=== PATIENT | female | born 1970 | race Hispanic/Latino ===

== ENCOUNTER 2017-10-07 04:34 | Inpatient (IN) | payer SELFPAY ==
[2017-10-07 05:11] LABS: #Eosinphils 0.1 thou/uL (0.0-0.7); #Lymphocytes 1.3 thou/uL (1.20-3.40); #Monocytes 0.5 thou/uL (0.11-0.59); #Neutrophils 7.7 thou/uL (1.40-6.50); %Basophils 0.3 % (0.0-1.0); %Eosinophils 0.9 % (0.0-10.0); %Lymphocytes 13.4 % (21.0-51.0); %Monocytes 5.5 % (0.0-10.0); %Neutrophils 79.9 % (42.0-75.0); Hemoglobin 13.5 g/dL (12.0-16.0); Mean Corpuscular HGB CONC 34.4 g/dL (32.0-36.0); Mean Corpuscular Hemoglobin 32.6 pg (27.0-31.0); Mean Corpuscular Volume 94.7 fL (78.0-98.0); Mean Platelet Volume 9.3 fL (7.4-10.4); Platelet Count 188 thou/uL (130-400); RBC Distribution Width 11.5 % (11.5-14.5); Red Blood Cell (RBC) Count 4.15 mill/uL (4.20-5.40); White Blood Cell (WBC) Count 9.7 thou/uL (4.8-10.8)
[2017-10-07 05:31] LABS: ALT (SGPT) 41 U/L (8-55); AST (SGOT) 20 U/L (5-34); Albumin 3.6 g/dL (3.5-5.0); Alkaline Phosphatase 145 U/L (40-150); Anion Gap 12 mmol/L (10-20); BUN (Urea Nitrogen) 10 mg/dL (7.0-18.7); Bilirubin, Total 0.4 mg/dL (0.2-1.2); Calc. Creatinine Clearance 0 mL/min (70-130); Calcium 7.9 mg/dL (7.8-10.44); Carbon Dioxide 21 mmol/L (22-29); Chloride 107 mmol/L (98-107); Estimated GFR-MDRD 73; Globulin 2.8 g/dL (2.4-3.5); Glucose 310 mg/dL (70-105); Lipase 14 U/L (8-78); Potassium 3.3 mmol/L (3.5-5.1); Protein, Total 6.4 g/dL (6.0-8.3); Sodium 137 mmol/L (136-145)
[2017-10-07] MEDS ORDERED: Acetaminophen 325 MG TAB PO PRN ×2 (09:11→09:19)
[2017-10-07] MEDS ORDERED: Bisacodyl 5 MG TAB PO PRN (09:11)
[2017-10-07] MEDS ORDERED: HYDROcodone/Acetaminophen 5/325 mg Tablet PO PRN ×2 (09:19)
[2017-10-07] MEDS ORDERED: Ondansetron HCl/PF 4 MG/2 ML Vial IVP PRN (09:19)
[2017-10-07] MEDS ORDERED: Ondansetron ODT 4 MG TAB SL PRN (09:19)
[2017-10-07] MEDS ORDERED: Piperacillin/Tazobactam 3.375 GM in Sodium Chloride 0.9% 100 ML IVPB SCH (09:30)
[2017-10-07] MEDS ORDERED: Sodium Chloride 0.45% 1,000 ML IV SCH (09:30)
[2017-10-07 10:03] LABS: #Eosinphils 0.1 thou/uL (0.0-0.7); #Lymphocytes 1.4 thou/uL (1.20-3.40); #Monocytes 0.5 thou/uL (0.11-0.59); #Neutrophils 7.6 thou/uL (1.40-6.50); %Basophils 0.2 % (0.0-1.0); %Eosinophils 0.6 % (0.0-10.0); %Lymphocytes 14.2 % (21.0-51.0); %Monocytes 5.2 % (0.0-10.0); %Neutrophils 79.8 % (42.0-75.0); Hemoglobin 13.2 g/dL (12.0-16.0); Mean Corpuscular HGB CONC 33.8 g/dL (32.0-36.0); Mean Corpuscular Hemoglobin 32.4 pg (27.0-31.0); Mean Corpuscular Volume 95.7 fL (78.0-98.0); Mean Platelet Volume 9.4 fL (7.4-10.4); Platelet Count 186 thou/uL (130-400); RBC Distribution Width 11.5 % (11.5-14.5); Red Blood Cell (RBC) Count 4.08 mill/uL (4.20-5.40); White Blood Cell (WBC) Count 9.5 thou/uL (4.8-10.8)
[2017-10-07 10:18] LABS: ALT (SGPT) 40 U/L (8-55); AST (SGOT) 20 U/L (5-34); Albumin 3.6 g/dL (3.5-5.0); Alkaline Phosphatase 127 U/L (40-150); Anion Gap 12 mmol/L (10-20); BUN (Urea Nitrogen) 9 mg/dL (7.0-18.7); Bilirubin, Total 0.5 mg/dL (0.2-1.2); Calc. Creatinine Clearance 105 mL/min (70-130); Calcium 7.8 mg/dL (7.8-10.44); Carbon Dioxide 22 mmol/L (22-29); Chloride 111 mmol/L (98-107); Estimated GFR-MDRD 80; Globulin 2.8 g/dL (2.4-3.5); Glucose 273 mg/dL (70-105); Potassium 3.5 mmol/L (3.5-5.1); Protein, Total 6.4 g/dL (6.0-8.3); Sodium 141 mmol/L (136-145)
[2017-10-07] MEDS: metroNIDAZOLE 500 MG in Premix Bag 1 BAG IVPB SCH ×2 (13:02→20:40)
[2017-10-07] MEDS ORDERED: Dextrose 5% in Water 1,000 ML IV PRN (15:37)
[2017-10-07] MEDS ORDERED: Dextrose 50% Abboject 50 ML SYRINGE SLOW IVP PRN (15:37)
[2017-10-07] MEDS: Dextrose 5 % And 0.9 % NaCl 1,000 ML IV SCH (16:23)
[2017-10-07] MEDS ORDERED: Naloxone HCl 0.4 mg/ml Vial IV PRN (17:22)
[2017-10-07] MEDS ORDERED: diphenhydrAMINE 50 MG/ML VIAL IM PRN (17:22)
[2017-10-07] MEDS ORDERED: Promethazine HCl 25 MG/ML VIAL IM PRN (17:22)
[2017-10-07] MEDS ORDERED: diphenhydrAMINE 50 MG/ML VIAL IVP PRN (17:22)
[2017-10-07] MEDS ORDERED: diphenhydrAMINE 25 MG CAP PO PRN (17:22)
[2017-10-07] MEDS ORDERED: Communication Order-Pharmacy FS SCH (17:30)
--- NOTE | 2017-10-07 18:06 | HP ---
CHIEF COMPLAINT: Abdominal pain. HISTORY OF PRESENT ILLNESS: The patient is a very pleasant 47-year-old female with history of hypertension and diabetes who is currently not on any blood pressure or diabetes medication, who p resented to the hospital with complaints of diffuse pressure-like pain to her lower abdomen. Patient stated that this pain started on Friday. She has been taking snfo-dnt-hqihdyy Tylenol that had some relief. Patient denies any radiation. She stated that her pain was exacerbated by movement. Patie nt states that her pain has been around 8-10. She also complains of early satiety, nausea, and some chills since yesterday, but denies any weight loss, vomiting or diarrhea or hematochezia. Patient st ates that she at times gets constipated, but her last bowel movement was this morning. She denies an y history of smoking or any chest pain or shortness of breath. Patient states that this has never [place] ppened to her before. PAST MEDICAL HISTORY: Hypertension, type 2 diabetes; however, she is currently not on any medication s due to financial issues. PAST SURGICAL HISTORY: Hysterectomy, appendectomy and removal of kidney stones. MEDICATIONS: She is on no medications. ALLERGIES: No known drug allergies. SOCIAL HISTORY: She occasionally drinks alcohol; however, denies any drug use or smoking history. REVIEW OF SYSTEMS: All negative except for the ones mentioned above in the HPI. LABORATORY DATA: As following: WBC of 9.5, hemoglobin of 13.2, hematocrit of 39.1, platelets of 186 . Chemistry: Sodium 141, potassium of 3.5, BUN of 9, creatinine of 0.77, calcium of 7.8, AST 20, AL T is 40. Lipase is 14. PHYSICAL EXAMINATION: VITAL SIGNS: Temperature 98.9, pulse 77, respirations 18, oxygen saturation 95, blood pressure 144/8 7. GENERAL: She is awake, alert, oriented x3, does not appear in any distress. CARDIOVASCULAR: S1, S2 present. No murmurs, rubs or gallops. LUNGS: Clear to auscultation. No rhonchi or wheezes noted. ABDOMEN: Obese. Bowel sounds are present. Significant tenderness upon light palpation all over abd omen. EXTREMITIES: No edema. SKIN: No lesions noted or rashes noted. NEUROLOGIC: There are no focal neurological deficits noted. ASSESSMENT AND PLAN: The patient is a very pleasant 47-year-old female who presents to the hospital with complaints of abdominal pain. 1. Diverticulitis with microperforation. Patient came in to the outside hospital, had a CT abdomen and pelvis, which indicated diverticulitis with microperforation. Patient currently has significant generalized tenderness in her abdomen concerning for peritonitis. We will start the patient on Cipro and Flagyl. Also, consult surgical services. Keep patient n.p.o. for now and also pain medication as needed. 2. Her sugars have been very high in the 310s and 273. We will check a hemoglobin A1c, also started on sliding scale insulin. 3. High blood pressure. The patient's blood pressure again was significantly elevated. This could be secondary to pain and also given her underlying high blood pressure diagnosis. 4. Deep venous thrombosis prophylaxis. We will put patient on subQ heparin.
[2017-10-07] MEDS: HYDROmorphone 10 mg/100 ml CADD IVPB PRN (18:10)
[2017-10-07] MEDS: Ketorolac Tromethamine 30 MG/ML VIAL IVP SCH ×2 (18:25→23:11)
[2017-10-07] MEDS: Famotidine/PF 20 mg/2ml Vial SLOW IVP SCH (20:41)
[2017-10-08] MEDS: Dextrose 5 % And 0.9 % NaCl 1,000 ML IV SCH ×3 (00:46→23:06)
--- NOTE | 2017-10-08 02:08 | CON ---
DATE OF CONSULTATION: 10/07/2017 REQUESTING PHYSICIAN: Alejandra Perez M.D. HISTORY OF PRESENT ILLNESS: This is a 47-year-old woman who was seen in an outside hospital with 2-day history of what started as a left lower quadrant abdominal pain and progressive generalized pain. Pain was initially rated at 10/10 and now rated at 9/10 without radiation. The patient denies any nausea or vomiting. She denies any fevers or chills. Her last bowel movement and flatus was yesterday. She denies any hematochezia or melena. She admits to approximately 10-pound weight loss over the last 2 weeks. PAST MEDICAL HISTORY: Pertinent for type 2 diabetes mellitus and essential hypertension for which patient has not been taking her medication over the last 1 year due to an affordability of her medications. PAST SURGICAL HISTORY: Abdominal hysterectomy, Appendectomy and kidney stone extractions. 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 She admits to drinking about 7 beers every weekend. She denies any cigarette smoking or illicit drug abuse. PREHOSPITALIZATION MEDICATIONS: None at the time of this admission. ALLERGIES: The patient denies any known drug allergies. FAMILY HISTORY: Notable for both parents with diabetes mellitus and father with essential hypertension and heart disease. She denies any family history of cancer. REVIEW OF SYSTEMS: A 10-point review of system is essentially unremarkable except for as stated in past medical history and chief complaint. PHYSICAL EXAMINATION: GENERAL: This reveals a 47-year-old, 4 feet 11-inch, 163-pound woman with a BMI of 32.9 kilograms per meter squared. The patient appears stated age and is in no acute distress at the time of my evaluation. VITAL SIGNS: Currently includes blood pressure 144/87, pulse 77, respiratory rate is 18, temperature is 98.9 degrees Fahrenheit, oxygen saturation is 95% on room air. Her maximum temperature since this admission is 99.0 degrees Fahrenheit. HEENT: Reveals normocephalic and atraumatic. Pupils are equal, round, and reactive to light and accommodation. Extraocular muscles are intact bilaterally. She has no sclerae icterus present. Oral mucosa is pink and moist. No lesions are noted. HEART: Reveals regular rate and rhythm, no murmurs or gallops auscultated. LUNGS: Clear to auscultation bilaterally. Breathing regular and unlabored. ABDOMEN: Soft and obese. She has generalized tenderness to palpation with mild rebound tenderness present. Liver and spleen nonpalpable below costal margin. EXTREMITIES: Reveals 2+ radial and pedal pulses bilaterally. No ankle edema is present. NEUROLOGIC: Reveals no focal deficits present. PERTINENT LABORATORY FINDINGS: Today includes a CBC with 9500 white blood cells , hemoglobin and hematocrit stable at 13.2 and 39.1 respectively. Platelet count is also stable at 186,000. Metabolic profile: Sodium 141, potassium is 3.5, chloride is 111, bicarbonate is 22, BUN is 9, creatinine is 0.77, and glucose is 273. AST and ALT 20 and 40 respectively. Total bilirubin is 0.5. I have personally reviewed the CT scan of the abdomen and pelvis which was obtained in [facility] this admission. This indeed shows thickened sigmoid colonic wall with pericolonic fat stranding and tiny that of extraluminal gas. There is no pneumatosis intestinalis. I did not see any significant free fluid present. IMPRESSION: 1. Acute sigmoid colonic diverticulitis with microperforation. 2. Type 2 diabetes mellitus, poorly controlled. 3. History of essential hypertension, poorly controlled. PLAN: 1. We will maintain bowel rest and IV hydration. I agree with choice of broad spectrum antibiotic therapy. 2. We will recommend tighter glucose control. There is no acute surgical indication for this patient at this time; however, should conservative management fail, we will give consideration to surgical intervention at the time which may warrant sigmoidectomy with end colostomy. If the patient remains hemodynamically stable but with significant persistent abdominal pain, we will consider diagnostic laparoscopy with laparoscopic abdominal washout. Above findings and plan has been discussed with the patient in the presence of nurse. The patient indicates understanding of information given. I have answered her questions. Thank you again, Dr. Perez for allowing me the opportunity to participate in the care of this patient. KASHIF
[2017-10-08] MEDS: Ketorolac Tromethamine 30 MG/ML VIAL IVP SCH ×3 (05:35→20:11)
[2017-10-08] MEDS: metroNIDAZOLE 500 MG in Premix Bag 1 BAG IVPB SCH ×2 (05:35→15:34)
[2017-10-08 05:38] LABS: Hemoglobin A1c 13.4 % (4.0-6.0)
[2017-10-08 05:39] LABS: #Eosinphils 0.1 thou/uL (0.0-0.7); #Lymphocytes 1.2 thou/uL (1.20-3.40); #Monocytes 0.6 thou/uL (0.11-0.59); #Neutrophils 6.3 thou/uL (1.40-6.50); %Basophils 0.1 % (0.0-1.0); %Eosinophils 1.1 % (0.0-10.0); %Lymphocytes 14.2 % (21.0-51.0); %Neutrophils 77.7 % (42.0-75.0); Mean Corpuscular HGB CONC 32.8 g/dL (32.0-36.0); Mean Corpuscular Hemoglobin 32.4 pg (27.0-31.0); Mean Corpuscular Volume 98.9 fL (78.0-98.0); Mean Platelet Volume 9.6 fL (7.4-10.4); Platelet Count 183 thou/uL (130-400); RBC Distribution Width 11.5 % (11.5-14.5); Red Blood Cell (RBC) Count 4.02 mill/uL (4.20-5.40); White Blood Cell (WBC) Count 8.2 thou/uL (4.8-10.8)
[2017-10-08 05:56] LABS: ALT (SGPT) 54 U/L (8-55); AST (SGOT) 45 U/L (5-34); Albumin 3.4 g/dL (3.5-5.0); Alkaline Phosphatase 108 U/L (40-150); Anion Gap 11 mmol/L (10-20); BUN (Urea Nitrogen) 9 mg/dL (7.0-18.7); Bilirubin, Total 0.5 mg/dL (0.2-1.2); Calc. Creatinine Clearance 96 mL/min (70-130); Calcium 7.9 mg/dL (7.8-10.44); Carbon Dioxide 22 mmol/L (22-29); Chloride 110 mmol/L (98-107); Estimated GFR-MDRD 72; Globulin 2.9 g/dL (2.4-3.5); Glucose 317 mg/dL (70-105); Potassium 4.7 mmol/L (3.5-5.1); Protein, Total 6.3 g/dL (6.0-8.3); Sodium 138 mmol/L (136-145)
[2017-10-08] MEDS: HumaLOG 300 UNITS/3 ML VIAL SC PRN ×2 (08:22→23:20)
[2017-10-08] MEDS: Enoxaparin Sodium 40 MG/0.4 ML SYRINGE SC SCH (08:22)
[2017-10-08] MEDS: Insulin Glargine 10 UNITS in Pre-Filled Syringe 1 EACH SC SCH (10:22)
[2017-10-08] MEDS: Famotidine/PF 20 mg/2ml Vial SLOW IVP SCH ×2 (10:23→23:06)
--- NOTE | 2017-10-08 11:44 | PRG ---
DATE OF SERVICE: 10/08/2017 SUBJECTIVE: This is a 47-year-old female that our team has seen in consultation for diverticulitis for evidence of microperforation. Patient has been on IV antibiotics since admission. There were no acute overnight events. The patient reports that her pain was an 8/10 yesterday and remains a 7/10 despite [employer] and IV antibiotics. Assistance of a spring bender was used for communication with the patient. OBJECTIVE: VITAL SIGNS: Temperature 99.6, pulse 81, respirations 20, O2 saturation 97% on room air, blood pressure 156/76. GENERAL: Well-developed female in no acute distress, resting in bed. PULMONARY: Normal work of breathing. Symmetric rise. CARDIOVASCULAR: Regular rate and rhythm. GASTROINTESTINAL: The abdomen is soft with generalized abdominal tenderness. There is no rigidity or guarding. MUSCULOSKELETAL: Moves all extremities x4. NEUROLOGIC: No focal deficit noted. LABORATORY DATA: WBC 8.2, hemoglobin 13.0, hematocrit 39.7, platelet count 183. Sodium 138, potassium 4.7, chloride 110, carbon dioxide 22, BUN 9, creatinine 0.85, glucose 317, hemoglobin A1c 13.4. ASSESSMENT: 1. Diverticulitis with evidence of microperforation. 2. Acute abdominal pain secondary to #1. PLAN: Despite conservative management with IV hydration, IV antibiotics and pain management, the patient continues to have persistent abdominal pain. We will take her for a laparoscopic washout. Add lantus 10U sc daily for uncontrolled hyperglycemia Plan of care was discussed with the patient and family at bedside. All questions were answered at the time of this dictation. The patient was seen and evaluated with Dr. Newton. KASHIF
[2017-10-08] MEDS ORDERED: Lidocaine 1% PF 5 ML VIAL ONE (11:53)
[2017-10-08] MEDS ORDERED: Succinylcholine Chloride 20 MG/ML 10 ml SYRINGE FS ONE (11:53)
[2017-10-08] MEDS ORDERED: Glycopyrrolate 0.2 MG/ML 5 ML SYRINGE ONE (11:53)
[2017-10-08] MEDS ORDERED: Ondansetron HCl/PF 4 MG/2 ML Vial ONE (11:53)
[2017-10-08] MEDS ORDERED: PROPOFOL 200 MG/20 ML VIAL ONE (11:53)
[2017-10-08] MEDS ORDERED: Bupivacaine/Epinephrine 0.25% 30 ML VIAL ONE (12:39)
[2017-10-08] MEDS ORDERED: Midazolam HCl 2 mg/2 ml Vial ONE (12:50)
[2017-10-08] MEDS ORDERED: Fentanyl 100 MCG/2 ML VIAL ONE ×4 (12:50→17:58)
[2017-10-08] MEDS ORDERED: Ondansetron HCl/PF 4 MG/2 ML Vial IVP PRN (13:34)
[2017-10-08] MEDS ORDERED: Promethazine HCl 25 MG/ML VIAL SLOW IVP PRN (13:34)
[2017-10-08] MEDS ORDERED: Promethazine HCl 25 MG/ML VIAL IM PRN (13:34)
--- NOTE | 2017-10-08 16:48 | PDOC.PN ---
- Subjective Encounter Start Date: 10/08/17 Encounter Start Time: 17:24 Subjective: pt post op, appears drowsy - Objective Resuscitation Status: Resuscitation Status FULL:Full Resuscitation Vital Signs & Weight: Vital Signs (12 hours) Temp Pulse Resp BP Pulse Ox 10/08/17 08:00 99.6 F 81 20 156/76 H 97 10/08/17 05:09 99.1 F 80 18 143/88 H 96 Weight Weight 163 lb I&O: 10/07/17 10/08/17 10/09/17 06:59 06:59 06:59 Intake Total 1200 Balance 1200 Result Diagrams: 10/08/17 04:24 10/08/17 04:24 Additional Labs: Accuchecks 10/08/17 10/08/17 10/08/17 12:16 11:34 08:06 POC Glucose 210 H 224 H 231 H 10/08/17 10/07/17 10/07/17 05:13 19:46 16:40 POC Glucose 275 H 182 H 200 H 10/07/17 11:18 POC Glucose 232 H Phys Exam - Physical Examination HEENT: PERRLA, moist MMs, sclera anicteric, TM's clear, oral pharynx no lesions , 2+ tonsils Neck: no nodes, no JVD, supple, full ROM Respiratory: no wheezing, no rales, no rhonchi, wheezing present, clear to auscultation bilateral Cardiovascular: RRR, no significant murmur, no rub, gallop, irregular Gastrointestinal: soft colostomy and dressing intact Musculoskeletal: no edema, pulses present, edema present Dx/Plan (1) Diverticulitis Code(s): K57.92 - DVTRCLI OF INTEST, PART UNSP, W/O PERF OR ABSCESS W/O BLEED Status: Acute (2) Diabetes Code(s): E11.9 - TYPE 2 DIABETES MELLITUS WITHOUT COMPLICATIONS Status: Acute Qualifiers: Diabetes mellitus type: type 2 (3) HTN (hypertension) Code(s): I10 - ESSENTIAL (PRIMARY) HYPERTENSION Status: Acute - Plan pt was taken to surgery since her pain did not improve with conservative tx -: will add lantus tonight and give one dose of short acting insulin now -: continue iv abx. -: will continue iv fluids * . Review of Systems - Review of Systems Other: unable to obtain - Medications/Allergies Allergies/Adverse Reactions: Allergies Allergy/AdvReac Type Severity Reaction Status Date / Time No Known Allergies Allergy Unverified 10/07/17 07:24 Medications: Current Medications Acetaminophen (Tylenol) 650 mg PO Q4H PRN PRN Reason: Headache/Fever or Pain Bisacodyl (Dulcolax) 10 mg PO DAILYPRN PRN PRN Reason: Constipation Dextrose/Water (Dextrose 50%) 25 gm SLOW IVP PRN PRN PRN Reason: Hypoglycemia Diphenhydramine HCl (Benadryl) 25 mg IVP Q3H PRN PRN Reason: Itching Diphenhydramine HCl (Benadryl) 25 mg PO Q3H PRN PRN Reason: Itching Diphenhydramine HCl (Benadryl) 25 mg IM Q3H PRN PRN Reason: Itching Enoxaparin Sodium (Lovenox) 40 mg SC 0900 [facility] Last Admin: 10/08/17 08:22 Dose: Not Given Famotidine (Pepcid) 20 mg SLOW IVP Q12HR [facility] Last Admin: 10/08/17 10:23 Dose: 20 mg Glucagon (Glucagon) 1 mg IM PRN PRN PRN Reason: Hypoglycemia Hydromorphone HCl (Dilaudid Cadd) 0 mg IVPB INF PRN PRN Reason: Pain Last Admin: 10/07/17 18:10 Dose: 10 mg Dextrose/Sodium Chloride (D5 0.9% Ns) 1,000 mls @ 100 mls/hr IV .Q10H [facility] Last Admin: 10/08/17 08:21 Dose: 1,000 mls Dextrose/Water (D5w) 1,000 mls @ 0 mls/hr IV .Q0M PRN; As Directed PRN Reason: Hypoglycemia Insulin Glargine 10 units/ (Miscellaneous Medication) 0.1 mls @ 0 mls/hr SC QAM [facility] Last Admin: 10/08/17 10:22 Dose: 0.1 mls Piperacillin Sod/Tazobactam (Sod 3.375 gm/ Sodium Chloride) 100 mls @ 200 mls/ hr IVPB Q6HR [facility] Insulin Glargine 5 units/ (Miscellaneous Medication) 0.05 mls @ 0 mls/hr SC HS [facility] Insulin Human Lispro (Humalog) 0 units SC .MODERATE SLIDING SC PRN PRN Reason: Moderate Correctional Scale Last Admin: 10/08/17 08:22 Dose: 4 unit Insulin Human Lispro (Humalog) 6 units SC NOW [facility] Stop: 10/08/17 19:30 Ketorolac Tromethamine (Toradol) 30 mg IVP Q6HR [facility] Stop: 10/09/17 18:01 Last Admin: 10/08/17 15:34 Dose: Not Given Labetalol HCl (Normodyne) 5 mg SLOW IVP Q4H PRN PRN Reason: SBP Greater Than 180 Naloxone HCl (Narcan) 0.2 mg IV Q5MIN PRN PRN Reason: Opiate Reversal Promethazine HCl (Phenergan) 12.5 mg IM Q4H PRN PRN Reason: Nausea/Vomiting Last Admin: 10/07/17 23:11 Dose: 12.5 mg Sodium Chloride (Flush - Normal Saline) 10 ml IVF Q12HR [facility] Sodium Chloride (Flush - Normal Saline) 10 ml IVF PRN PRN PRN Reason: Saline Flush
[2017-10-08] MEDS ORDERED: HumaLOG 300 UNITS/3 ML VIAL ONE (17:22)
[2017-10-08] MEDS ORDERED: Labetalol HCl 100 MG/20 ML VIAL SLOW IVP PRN (17:22)
[2017-10-08] MEDS ORDERED: HumaLOG 300 UNITS/3 ML VIAL SC SCH (17:30)
[2017-10-08] MEDS ORDERED: Labetalol HCl 100 MG/20 ML VIAL ONE (18:07)
--- NOTE | 2017-10-08 19:24 | OP ---
DATE OF OPERATION: 10/08/2017 PREOPERATIVE DIAGNOSES: 1. Acute sigmoid diverticulitis with microperforation. 2. Acute peritonitis secondary to #1. POSTOPERATIVE DIAGNOSES: 1. Acute sigmoid colon diverticulitis with blowout. 2. Acute peritonitis secondary to #1. 3. Extensive intraabdominal adhesions. OPERATIONS PERFORMED: 1. Diagnostic laparoscopy. 2. Laparoscopic extensive adhesiolysis. 3. Exploratory laparotomy. 4. Sigmoidectomy with end colostomy. SURGEON: Jorge Newton D.O. ANESTHESIA: General endotracheal. ESTIMATED BLOOD LOSS: 200 mL. FLUIDS GIVEN: 3000 mL crystalloids. SPONGE AND INSTRUMENT COUNT: Certified as correct x2. COMPLICATIONS: None apparent at time of operation. INDICATIONS FOR PROCEDURE: A 47-year-old woman with history of type 2 diabetes mellitus who presente d with worsening abdominal pain of 2-3 day duration. Clinical and radiographic examination was consi stent with acute sigmoid colon diverticulitis with microperforation. The patient was placed on broad spectrum IV antibiotic therapy for 3 days now yet with persistent severe generalized abdominal pain. Despite being on broad spectrum antibiotic therapy in addition to the persistent severe abdominal p ain, patient is now having new onset fever. Clinical examination today reveals significant peritonea l signs on examination suggesting worsening peritonitis. Decision was made to bring the patient to the operating room for diagnostic laparoscopy and laparosco pic abdominal washout. Findings are consistent with extensive intraabdominal adhesions involving the previous infraumbilical midline incision from the hysterectomy. There was also extensive amount of inflammation involving the mid sigmoid colon which was completely adherent to the abdominal wall. DESCRIPTION OF PROCEDURE: Informed consent obtained from the patient who was brought to the operatin g room and placed in supine position. Following general anesthesia, abdomen is sterilely prepped and draped in usual fashion after Lion catheter was inserted and placed to wall suction. The skin belo w the umbilicus was infiltrated with 0.25% Marcaine with epinephrine. A small curvilinear infraumbil ical incision is made using an 11 scalpel. Umbilical stalk was grasped with Gayle's and elevated. Veress needle was inserted through the incision through which the abdomen was insufflated with 3 lite rs of CO2 gas. Intraabdominal pressure was noted at 2 mmHg. Following abdominal insufflation, Veres s needle was removed and a 5 mm trocar was then introduced into the peritoneal cavity using the Visip ort under laparoscopy. Laparoscopy confirmed proper placement of the port. No injuries to underlyin g structures. On direct laparoscopy, I placed right upper quadrant port after the overlying skin was infiltrated with 0.25% Marcaine with epinephrine and appropriate incisions made. The pelvis was the n viewed from this area noting extensive amount of intraabdominal adhesions involving omentum, small bowel and the anterior abdominal wall. Meticulous adhesiolysis ensued which warranted placement of a second left upper quadrant 5 mm port. Once adhesiolysis was completed, the sigmoid colon revealed i n this area which was markedly thick walled and hard to grasp. This was densely adhered to the anter ior abdominal wall. Decision was made at this juncture to convert this to open to have a better asse ssment of the sigmoid colon. A midline incision was then made using #10 scalpel and carried the inci roly through subcutaneous tissues maintaining hemostasis using cautery. Fascia was incised in midlin e. The peritoneal cavity was then entered using Metzenbaum scissors. Incision was then extended sup eriorly and inferiorly. Bookwalter retractor was put in place to gain exposure. I was able to run t he small bowel from the ligament of Treitz down to terminal ileum, finding no pathology. The large i ntestine was then palpated from the cecum through the ascending, transverse and descending colon down to the level of the sigmoid colon. In the mid sigmoid colon, there was a hard mass which was marked ly adherent to the intraabdominal wall. Once the left colon was mobilized along the white line of To ldt, a posterior blowout of the sigmoid colon was readily evident. Photography was taken up document ation. Decision was made at this juncture therefore to proceed with sigmoidectomy. As there was significant amount of inflammation which we will prohibit primary anastomosis, colostomy will be warranted at th is time. I made a rent through the sigmoid mesocolon using a hemostat. This was achieved approximat olena 4 cm from the involved sigmoid colon. ABDI stapler was introduced here and the bowel was divided. I then made another rent for approximately 4 cm proximal to the involved segment. Again, ABDI stapl er was introduced through this defect in the mesentery and the bowel was divided. Mesentery of the s igmoid colonic specimen was sterilely divided using LigaSure device with good hemostasis. The specim en was passed off the operative field for more transmission to pathology. The abdominal cavity was t hen copiously irrigated clear with saline. Good hemostasis is noted in place. All sponges and instr uments were removed at this juncture and accounted for x2. A core incision was made in the left lowe r quadrant. The site chosen for the colostomy. This was achieved using #10 scalpel. Incision was c arried through subcutaneous tissues maintaining hemostasis using cautery. This was dissected down to the level of the fascia. A crucifix incision was made on the anterior fascia. Through this, I intr oduced a tonsil clamp into the peritoneal cavity dissecting this core defect to 3 fingerbreadths. Ba nikock forceps was introduced then through this grasping the staple end of the descending colon which was pulled through and secured within the peritoneal cavity using a 3-0 silk suture at 3 points. Aga in, once all sponges and instruments have been accounted for, small bowel was returned to normal norm omic location. Omentum was drawn over the remainder of the viscera. Fascia was approximated in midl ine using a running stitch of #1 single stranded PDS. Subcutaneous tissues irrigated clear with sali ne solution perfecting hemostasis using thermocautery. Subcutaneous tissues were approximated using interrupted sutures of 3-0 Vicryl. Skin was closed using porfirio. Sterile dressings were applied. Attention was then directed to the staple line of the descending colon. The staple line was excised using Sullivan scissors. A functional Breanna colostomy was then achieved using interrupted sutures of 3- 0 Vicryl. Ostomy appliance was then put in place. The patient tolerated this operation without any apparent complication and was returned to recovery room in satisfactory condition.
[2017-10-08] MEDS: Piperacillin/Tazobactam 3.375 GM in Sodium Chloride 0.9% 100 ML IVPB SCH (20:12)
--- NOTE | 2017-10-08 20:18 | RAD ---
SUPINE ABDOMEN: 10/08/17 HISTORY: Assess NG tube placement. FINDINGS/IMPRESSION: NG tube is looped and overlies the left upper quadrant. Findings would indicate coiling of NG tube in the upper gastric fundus. Skin porfirio overlie the mid lower abdomen indicating recent surgery. There is streaky gas density se en in soft tissues of the left abdomen laterally. This presumably represents postoperative change; ho wever, subcutaneous cellulitis should be excluded. The findings were relayed to Tiffany, the patient's nurse in surgery B floor. The ordering physician will be notified. POS: MARIZA
[2017-10-08] MEDS: Insulin Glargine 5 UNITS in Pre-Filled Syringe 1 EACH SC SCH (23:21)
[2017-10-09] MEDS: Piperacillin/Tazobactam 3.375 GM in Sodium Chloride 0.9% 100 ML IVPB SCH ×4 (00:59→18:23)
[2017-10-09] MEDS: Ketorolac Tromethamine 30 MG/ML VIAL IVP SCH ×4 (01:00→18:24)
[2017-10-09] MEDS: Dextrose 5 % And 0.9 % NaCl 1,000 ML IV SCH (04:40)
[2017-10-09 05:53] LABS: #Monocytes 0.5 thou/uL (0.11-0.59); #Neutrophils 5.6 thou/uL (1.40-6.50); %Basophils 0.2 % (0.0-1.0); %Eosinophils 0.4 % (0.0-10.0); %Lymphocytes 14.6 % (21.0-51.0); %Monocytes 6.5 % (0.0-10.0); %Neutrophils 78.3 % (42.0-75.0); Hemoglobin 12.9 g/dL (12.0-16.0); Mean Corpuscular HGB CONC 33.3 g/dL (32.0-36.0); Mean Corpuscular Hemoglobin 33.2 pg (27.0-31.0); Mean Corpuscular Volume 99.5 fL (78.0-98.0); Platelet Count 192 thou/uL (130-400); RBC Distribution Width 11.8 % (11.5-14.5); White Blood Cell (WBC) Count 7.1 thou/uL (4.8-10.8)
[2017-10-09] MEDS: HumaLOG 300 UNITS/3 ML VIAL SC PRN ×2 (06:14→11:53)
[2017-10-09 06:15] LABS: Anion Gap 10 mmol/L (10-20); BUN (Urea Nitrogen) 11 mg/dL (7.0-18.7); Calc. Creatinine Clearance 100 mL/min (70-130); Calcium 7.6 mg/dL (7.8-10.44); Carbon Dioxide 22 mmol/L (22-29); Chloride 116 mmol/L (98-107); Estimated GFR-MDRD 76; Glucose 194 mg/dL (70-105); Magnesium 1.7 mg/dL (1.6-2.6); Phosphorus 2.5 mg/dL (2.3-4.7); Potassium 4.2 mmol/L (3.5-5.1); Sodium 144 mmol/L (136-145)
[2017-10-09] MEDS: Insulin Glargine 10 UNITS in Pre-Filled Syringe 1 EACH SC SCH (09:33)
[2017-10-09] MEDS: Enoxaparin Sodium 40 MG/0.4 ML SYRINGE SC SCH (09:34)
[2017-10-09] MEDS: Lactated Ringer's 1,000 ML IV SCH ×2 (11:42→18:33)
[2017-10-09] MEDS: Famotidine/PF 20 mg/2ml Vial SLOW IVP SCH ×2 (11:42→21:39)
--- NOTE | 2017-10-09 14:18 | PRG ---
DATE OF SERVICE: 10/09/2017 SUBJECTIVE: Ms. Spencer is a 47-year-old woman postop day #1 status post Frankie's procedure. This mo rning, she is awake and alert. Reports adequate pain control. OBJECTIVE: VITAL SIGNS: Includes blood pressure 144/91, pulse 86, respiratory rate 16, temperature is 99.5 degr ees Fahrenheit, and oxygen saturation 100% on room air. HEENT: Examination reveals normocephalic and atraumatic. HEART: Reveals regular rate and rhythm, no murmurs or gallops auscultated. LUNGS: Clear to auscultation bilaterally. Breathing regular and unlabored. ABDOMEN: Soft with incisional tenderness to palpation. She has no gross rebound tenderness present. Colostomy is viable with no output of stool or gas at this time. Nasogastric tube which was placed yesterday returns scanty gastric effluence. The patient has adequate urinary output. NEUROLOGIC: Examination reveals no focal deficits present. LABORATORY DATA: Laboratory findings today includes CBC with 7100 white blood cell, hemoglobin and h ematocrit are 12.9 and 38.8 respectively. Platelet count is 192,000. Metabolic profile: Sodium 144 , potassium 4.2, chloride is 116, bicarbonate 22, BUN 11, creatinine 0.81, glucose is 194, magnesium 1.7, phosphorus 2.5. IMPRESSION: 1. Postop day #1, status post Frankie's procedure. The patient is otherwise hemodynamically stable . 2. Acute hypomagnesemia. 3. Acute hypophosphatemia. PLAN: 1. Correct abnormal electrolytes. 2. Increase activity as tolerated. 3. Will discontinue Lion catheter at this time and monitor urinary output. Above findings and plan discussed with the patient who indicates understanding of information given. I answered the questions.
--- NOTE | 2017-10-09 15:32 | PDOC.PN ---
- Subjective Encounter Start Date: 10/09/17 Encounter Start Time: 14:00 Subjective: pt up in bed has some abdomen pain - Objective Resuscitation Status: Resuscitation Status FULL:Full Resuscitation Vital Signs & Weight: Vital Signs (12 hours) Temp Pulse Resp BP Pulse Ox 10/09/17 11:00 99.8 F H 87 14 156/94 H 99 10/09/17 07:40 99.5 F 86 16 144/91 H 100 10/09/17 04:14 99.5 F 85 16 137/86 99 Weight Weight 163 lb I&O: 10/08/17 10/09/17 10/10/17 06:59 06:59 06:59 Intake Total 1200 Balance 1200 Result Diagrams: 10/09/17 05:02 10/09/17 05:02 Additional Labs: Accuchecks 10/09/17 10/09/17 10/08/17 11:37 06:07 21:05 POC Glucose 207 H 188 H 213 H 10/08/17 17:12 POC Glucose 257 H Phys Exam - Physical Examination HEENT: PERRLA, moist MMs, sclera anicteric, TM's clear, oral pharynx no lesions , 2+ tonsils Neck: no nodes, no JVD, supple, full ROM Respiratory: no wheezing, no rales, no rhonchi, wheezing present, clear to auscultation bilateral Cardiovascular: RRR, no significant murmur, no rub, gallop, irregular Gastrointestinal: soft, positive bowel sounds pt's colostomy has minimal drainage Dx/Plan (1) Diverticulitis Code(s): K57.92 - DVTRCLI OF INTEST, PART UNSP, W/O PERF OR ABSCESS W/O BLEED Status: Acute (2) Diabetes Code(s): E11.9 - TYPE 2 DIABETES MELLITUS WITHOUT COMPLICATIONS Status: Acute Qualifiers: Diabetes mellitus type: type 2 (3) HTN (hypertension) Code(s): I10 - ESSENTIAL (PRIMARY) HYPERTENSION Status: Acute - 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 -: continue sliding scale insulin * . Review of Systems - Review of Systems Eyes: negative: Pain, Vision Change, Conjunctivae Inflammation, Eyelid Inflammation, Redness, Other ENT: negative: Ear Pain, Ear Discharge, Nose Pain, Nose Discharge, Nose Congestion, Mouth Pain, Mouth Swelling, Throat Pain, Throat Swelling, Other Respiratory: negative: Cough, Dry, Shortness of Breath, Hemoptysis, SOB with Excertion, Pleuritic Pain, Sputum, Wheezing Cardiovascular: negative: chest pain, palpitations, orthopnea, paroxysmal nocturnal dyspnea, edema, light headedness, other Gastrointestinal: Abdominal Pain. negative: Nausea, Vomiting, Diarrhea, Constipation, Melena, Hematochezia, Other Genitourinary: negative: Dysuria, Frequency, Incontinence, Hematuria, Retention , Other - Medications/Allergies Allergies/Adverse Reactions: Allergies Allergy/AdvReac Type Severity Reaction Status Date / Time No Known Allergies Allergy Unverified 10/07/17 07:24 Medications: Current Medications Acetaminophen (Tylenol) 650 mg PO Q4H PRN PRN Reason: Headache/Fever or Pain Bisacodyl (Dulcolax) 10 mg PO DAILYPRN PRN PRN Reason: Constipation Dextrose/Water (Dextrose 50%) 25 gm SLOW IVP PRN PRN PRN Reason: Hypoglycemia Diphenhydramine HCl (Benadryl) 25 mg IVP Q3H PRN PRN Reason: Itching Diphenhydramine HCl (Benadryl) 25 mg PO Q3H PRN PRN Reason: Itching Diphenhydramine HCl (Benadryl) 25 mg IM Q3H PRN PRN Reason: Itching Enoxaparin Sodium (Lovenox) 40 mg SC 0900 [facility] Last Admin: 10/09/17 09:34 Dose: 40 mg Famotidine (Pepcid) 20 mg SLOW IVP Q12HR [facility] Last Admin: 10/09/17 11:42 Dose: 20 mg Glucagon (Glucagon) 1 mg IM PRN PRN PRN Reason: Hypoglycemia Hydromorphone HCl (Dilaudid Cadd) 0 mg IVPB INF PRN PRN Reason: Pain Last Admin: 10/07/17 18:10 Dose: 10 mg Dextrose/Water (D5w) 1,000 mls @ 0 mls/hr IV .Q0M PRN; As Directed PRN Reason: Hypoglycemia Insulin Glargine 10 units/ (Miscellaneous Medication) 0.1 mls @ 0 mls/hr SC QAM [facility] Last Admin: 10/09/17 09:33 Dose: 0.1 mls Piperacillin Sod/Tazobactam (Sod 3.375 gm/ Sodium Chloride) 100 mls @ 200 mls/ hr IVPB Q6HR [facility] Stop: 10/13/17 12:29 Last Admin: 10/09/17 12:54 Dose: 100 mls Insulin Glargine 5 units/ (Miscellaneous Medication) 0.05 mls @ 0 mls/hr SC HS [facility] Last Admin: 10/08/17 23:21 Dose: 0.05 mls Lactated Ringer's (Lactated Ringer's) 1,000 mls @ 120 mls/hr IV .Q8H20M [facility] Last Admin: 10/09/17 11:42 Dose: 1,000 mls Insulin Human Lispro (Humalog) 0 units SC .MODERATE SLIDING SC PRN PRN Reason: Moderate Correctional Scale Last Admin: 10/09/17 11:53 Dose: 4 unit Ketorolac Tromethamine (Toradol) 30 mg IVP Q6HR [facility] Stop: 10/09/17 18:01 Last Admin: 10/09/17 12:55 Dose: 30 mg Labetalol HCl (Normodyne) 5 mg SLOW IVP Q4H PRN PRN Reason: SBP Greater Than 180 Naloxone HCl (Narcan) 0.2 mg IV Q5MIN PRN PRN Reason: Opiate Reversal Promethazine HCl (Phenergan) 12.5 mg IM Q4H PRN PRN Reason: Nausea/Vomiting Last Admin: 10/07/17 23:11 Dose: 12.5 mg Sodium Chloride (Flush - Normal Saline) 10 ml IVF Q12HR [facility] Last Admin: 10/09/17 11:43 Dose: Not Given Sodium Chloride (Flush - Normal Saline) 10 ml IVF PRN PRN PRN Reason: Saline Flush
[2017-10-09] MEDS: Insulin Glargine 5 UNITS in Pre-Filled Syringe 1 EACH SC SCH (21:43)
[2017-10-09] MEDS: HYDROmorphone 10 mg/100 ml CADD IVPB PRN (23:00)
[2017-10-10] MEDS: Piperacillin/Tazobactam 3.375 GM in Sodium Chloride 0.9% 100 ML IVPB SCH ×5 (00:59→23:48)
[2017-10-10] MEDS: Lactated Ringer's 1,000 ML IV SCH ×2 (02:04→07:55)
[2017-10-10 05:53] LABS: #Eosinphils 0.1 thou/uL (0.0-0.7); #Monocytes 0.6 thou/uL (0.11-0.59); #Neutrophils 8.3 thou/uL (1.40-6.50); %Basophils 0.4 % (0.0-1.0); %Eosinophils 1.1 % (0.0-10.0); %Monocytes 6.2 % (0.0-10.0); %Neutrophils 82.4 % (42.0-75.0); Hemoglobin 12.6 g/dL (12.0-16.0); Mean Corpuscular HGB CONC 32.7 g/dL (32.0-36.0); Mean Corpuscular Hemoglobin 33.1 pg (27.0-31.0); Mean Platelet Volume 8.9 fL (7.4-10.4); Platelet Count 196 thou/uL (130-400); RBC Distribution Width 11.8 % (11.5-14.5); White Blood Cell (WBC) Count 10.1 thou/uL (4.8-10.8)
[2017-10-10 05:58] LABS: Anion Gap 12 mmol/L (10-20); BUN (Urea Nitrogen) 8 mg/dL (7.0-18.7); Calc. Creatinine Clearance 111 mL/min (70-130); Calcium 8.6 mg/dL (7.8-10.44); Carbon Dioxide 26 mmol/L (22-29); Chloride 114 mmol/L (98-107); Estimated GFR-MDRD 85; Glucose 140 mg/dL (70-105); Potassium 4.5 mmol/L (3.5-5.1); Sodium 147 mmol/L (136-145)
[2017-10-10] MEDS: Insulin Glargine 10 UNITS in Pre-Filled Syringe 1 EACH SC SCH (07:56)
[2017-10-10] MEDS: Enoxaparin Sodium 40 MG/0.4 ML SYRINGE SC SCH (08:13)
[2017-10-10] MEDS ORDERED: Dextrose 5 % And 0.9 % NaCl 1,000 ML IV SCH (10:15)
[2017-10-10] MEDS ORDERED: traMADol HCl 50 MG TAB PO PRN (11:53)
[2017-10-10] MEDS: Acetaminophen 500 MG TAB PO SCH ×3 (12:23→23:49)
[2017-10-10] MEDS: Famotidine/PF 20 mg/2ml Vial SLOW IVP SCH ×2 (12:34→23:31)
[2017-10-10] MEDS ORDERED: Amlodipine 10 MG TAB PO SCH (13:00)
--- NOTE | 2017-10-10 13:07 | PRG ---
DATE OF SERVICE: 10/10/2017 SUBJECTIVE: Ms. Spencer is a 47-year-old woman who is postoperative day #2 status post Frankie's proc edure. The patient is awake and alert today reporting adequate pain control. She ambulates with mod est difficulty. OBJECTIVE: VITAL SIGNS: This morning includes blood pressure 145/85, pulse is 84, respiratory rate 16, temperat ure 99.4 degrees Fahrenheit, oxygen saturation is 100% on room air. HEENT: Examination reveals normocephalic and atraumatic. Pupils equal, round, reactive to light and accommodation. HEART: Reveals regular rate and rhythm, no murmurs or gallops auscultated. LUNGS: Clear to auscultation bilaterally. Breathing is regular and unlabored. ABDOMEN: Soft with incisional tenderness to palpation. The incision still remains intact, clean, an d dry. Colostomy is viable with no output of stool or gas at this time. NEUROLOGIC: Examination reveals no focal deficits present. LABORATORY DATA: Laboratory findings includes CBC with 10,100 white blood cells, hemoglobin and coco tocrit are 12.6 and 38.4 respectively. Platelet count is 196,000. Metabolic profile; sodium 147, po tassium is 4.5, chloride is 114, bicarbonate 26, BUN 8, creatinine 0.73 and glucose 140. IMPRESSION: Postop day #2, status post Frankie's procedure. The patient is otherwise hemodynamical ly stable. PLAN: 1. 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 2. We will start clear liquid diet and oral analgesics. The patient is advised to increase activity as tolerated. 3. We will also saline lock. Above findings and plan discussed with the patient who indicates understanding of the information giv en. I answered her questions.
--- NOTE | 2017-10-10 14:38 | PDOC.PN ---
- Subjective Encounter Start Date: 10/10/17 Encounter Start Time: 09:30 Subjective: pt up in bed feels better - Objective Resuscitation Status: Resuscitation Status FULL:Full Resuscitation Vital Signs & Weight: Vital Signs (12 hours) Temp Pulse Resp BP BP Pulse Ox 10/10/17 11:00 98.2 F 92 14 167/108 H 96 10/10/17 07:00 99.4 F 84 16 145/85 H 100 10/10/17 03:53 100 10/10/17 03:48 98.7 F 92 16 162/96 H 100 Weight Weight 163 lb I&O: 10/09/17 10/10/17 10/11/17 06:59 06:59 06:59 Intake Total 3080 Output Total 3320 Balance -240 Result Diagrams: 10/10/17 05:23 10/10/17 05:23 Additional Labs: Accuchecks 10/10/17 10/10/17 10/09/17 13:11 06:30 20:51 POC Glucose 116 H 122 H 125 H 10/09/17 17:09 POC Glucose 141 H Phys Exam - Physical Examination HEENT: PERRLA, moist MMs, sclera anicteric, TM's clear, oral pharynx no lesions , 2+ tonsils Neck: no nodes, no JVD, supple, full ROM Respiratory: no wheezing, no rales, no rhonchi, wheezing present, clear to auscultation bilateral Cardiovascular: RRR, no significant murmur, no rub, gallop, irregular Gastrointestinal: soft, positive bowel sounds colostomy intact Dx/Plan (1) Diverticulitis Code(s): K57.92 - DVTRCLI OF INTEST, PART UNSP, W/O PERF OR ABSCESS W/O BLEED Status: Acute (2) Diabetes Code(s): E11.9 - TYPE 2 DIABETES MELLITUS WITHOUT COMPLICATIONS Status: Acute Qualifiers: Diabetes mellitus type: type 2 (3) HTN (hypertension) Code(s): I10 - ESSENTIAL (PRIMARY) HYPERTENSION Status: Acute - Plan may decrease her insulin -: Pt will need diabetic teaching -: continue abx for now * . Review of Systems - Review of Systems ENT: negative: Ear Pain, Ear Discharge, Nose Pain, Nose Discharge, Nose Congestion, Mouth Pain, Mouth Swelling, Throat Pain, Throat Swelling, Other Respiratory: negative: Cough, Dry, Shortness of Breath, Hemoptysis, SOB with Excertion, Pleuritic Pain, Sputum, Wheezing Gastrointestinal: Abdominal Pain Genitourinary: negative: Dysuria, Frequency, Incontinence, Hematuria, Retention , Other Musculoskeletal: negative: Neck Pain, Shoulder Pain, Arm Pain, Back Pain, Hand Pain, Leg Pain, Foot Pain, Other - Medications/Allergies Allergies/Adverse Reactions: Allergies Allergy/AdvReac Type Severity Reaction Status Date / Time No Known Allergies Allergy Unverified 10/07/17 07:24 Medications: Current Medications Acetaminophen (Tylenol) 1,000 mg PO Q6HR [facility] Last Admin: 10/10/17 12:23 Dose: 1,000 mg Amlodipine Besylate (Norvasc) 10 mg PO NOW [facility] Stop: 10/10/17 15:00 Bisacodyl (Dulcolax) 10 mg PO DAILYPRN PRN PRN Reason: Constipation Dextrose/Water (Dextrose 50%) 25 gm SLOW IVP PRN PRN PRN Reason: Hypoglycemia Diphenhydramine HCl (Benadryl) 25 mg IVP Q3H PRN PRN Reason: Itching Diphenhydramine HCl (Benadryl) 25 mg PO Q3H PRN PRN Reason: Itching Diphenhydramine HCl (Benadryl) 25 mg IM Q3H PRN PRN Reason: Itching Enoxaparin Sodium (Lovenox) 40 mg SC 0900 [facility] Last Admin: 10/10/17 08:13 Dose: 40 mg Famotidine (Pepcid) 20 mg SLOW IVP Q12HR [facility] Last Admin: 10/10/17 12:34 Dose: 20 mg Glucagon (Glucagon) 1 mg IM PRN PRN PRN Reason: Hypoglycemia Insulin Glargine 10 units/ (Miscellaneous Medication) 0.1 mls @ 0 mls/hr SC QAM [facility] Last Admin: 10/10/17 07:56 Dose: 0.1 mls Piperacillin Sod/Tazobactam (Sod 3.375 gm/ Sodium Chloride) 100 mls @ 200 mls/ hr IVPB Q6HR [facility] Stop: 10/13/17 12:29 Last Admin: 10/10/17 12:22 Dose: 100 mls Insulin Glargine 5 units/ (Miscellaneous Medication) 0.05 mls @ 0 mls/hr SC HS [facility] Last Admin: 10/09/17 21:43 Dose: 0.05 mls Ibuprofen (Motrin) 800 mg PO Q8H PRN PRN Reason: Pain Insulin Human Lispro (Humalog) 0 units SC .MODERATE SLIDING SC PRN PRN Reason: Moderate Correctional Scale Last Admin: 10/09/17 11:53 Dose: 4 unit Labetalol HCl (Normodyne) 5 mg SLOW IVP Q4H PRN PRN Reason: SBP Greater Than 180 Naloxone HCl (Narcan) 0.2 mg IV Q5MIN PRN PRN Reason: Opiate Reversal Promethazine HCl (Phenergan) 12.5 mg IM Q4H PRN PRN Reason: Nausea/Vomiting Last Admin: 10/07/17 23:11 Dose: 12.5 mg Sodium Chloride (Flush - Normal Saline) 10 ml IVF Q12HR [facility] Last Admin: 10/10/17 08:11 Dose: Not Given Sodium Chloride (Flush - Normal Saline) 10 ml IVF PRN PRN PRN Reason: Saline Flush Tramadol HCl (Ultram) 50 mg PO Q6H PRN PRN Reason: Moderate Pain (4-6) Tramadol HCl (Ultram) 100 mg PO Q4H PRN PRN Reason: Severe Pain (7-10)
[2017-10-10] MEDS: HumaLOG 300 UNITS/3 ML VIAL SC PRN (16:59)
[2017-10-10] MEDS: traMADol HCl 50 MG TAB PO PRN ×2 (17:36→21:28)
[2017-10-10] MEDS: Insulin Glargine 5 UNITS in Pre-Filled Syringe 1 EACH SC SCH (21:54)
[2017-10-11] MEDS: traMADol HCl 50 MG TAB PO PRN (04:09)
[2017-10-11] MEDS: Acetaminophen 500 MG TAB PO SCH ×4 (06:07→23:13)
[2017-10-11] MEDS: Piperacillin/Tazobactam 3.375 GM in Sodium Chloride 0.9% 100 ML IVPB SCH (06:07)
[2017-10-11] MEDS: Enoxaparin Sodium 40 MG/0.4 ML SYRINGE SC SCH (08:20)
[2017-10-11] MEDS: Famotidine/PF 20 mg/2ml Vial SLOW IVP SCH (08:20)
[2017-10-11] MEDS ORDERED: Ciprofloxacin 500 MG TAB PO SCH (09:00)
--- NOTE | 2017-10-11 10:05 | PRG ---
DATE OF SERVICE: 10/11/2017 SUBJECTIVE: Ms. Spencer is a 47-year-old woman who is postoperative day #3 status post Frankie's proc edure. The patient is awake and alert. She reports adequate pain control. Urinary output is adequa te. OBJECTIVE: VITAL SIGNS: Today includes blood pressure 158/102, pulse is 73, respiratory rate is 14, temperature is 98.5 degrees Fahrenheit, oxygen saturation 96% on room air. HEENT: Examination reveals normocephalic and atraumatic. HEART: Reveals regular rate and rhythm. No murmurs or gallops auscultated. LUNGS: Clear to auscultation bilaterally. Breathing is regular and unlabored. ABDOMEN: Soft and nondistended. Incision is intact, clean and dry. Colostomy is viable with output of gas, no stool yet. EXTREMITIES: Reveals 2+ radial and pedal pulses bilaterally. No ankle edema is present. NEUROLOGIC: Examination reveals no focal deficits present. IMPRESSION: Postoperative day #3 status post Frankie's procedure. The patient is otherwise hemodyn amically stable. PLAN: 1. The patient has been tolerant of clear liquid diet. Therefore, we will advance to a general diet today and increase activity ad-jaquelin. 2. We will saline lock at this time.
[2017-10-11] MEDS: Insulin Glargine 10 UNITS in Pre-Filled Syringe 1 EACH SC SCH (10:21)
[2017-10-11] MEDS: metroNIDAZOLE 500 MG TAB PO SCH ×3 (10:22→21:30)
[2017-10-11] MEDS: Senokot S 8.6-50 MG TAB PO SCH ×2 (10:22→21:30)
[2017-10-11] MEDS ORDERED: Furosemide 20 MG/2 ML VIAL SLOW IVP SCH (10:30)
--- NOTE | 2017-10-11 13:50 | PDOC.PN ---
- Subjective Encounter Start Date: 10/11/17 Encounter Start Time: 13:49 Subjective: pt up in bed no complains - Objective Resuscitation Status: Resuscitation Status FULL:Full Resuscitation Vital Signs & Weight: Vital Signs (12 hours) Temp Pulse Resp BP Pulse Ox 10/11/17 11:51 98.0 F 86 16 140/96 H 97 10/11/17 08:00 98.0 F 86 16 96 10/11/17 07:57 98.5 F 73 14 158/102 H 96 10/11/17 04:10 98.5 F 70 15 149/91 H 98 Weight Weight 163 lb I&O: 10/10/17 10/11/17 10/12/17 06:59 06:59 06:59 Intake Total 3080 2660 Output Total 3320 2009 Balance -240 650 Result Diagrams: 10/10/17 05:23 10/10/17 05:23 Additional Labs: Accuchecks 10/11/17 10/11/17 10/10/17 10:58 06:10 21:48 POC Glucose 163 H 141 H 177 H 10/10/17 15:56 POC Glucose 226 H Phys Exam - Physical Examination HEENT: PERRLA, moist MMs, sclera anicteric, TM's clear, oral pharynx no lesions , 2+ tonsils Neck: no nodes, no JVD, supple, full ROM Respiratory: no wheezing, no rales, no rhonchi, wheezing present, clear to auscultation bilateral Cardiovascular: RRR, no significant murmur, no rub, gallop, irregular Gastrointestinal: soft colostomy has some flatus Musculoskeletal: no edema, pulses present, edema present Dx/Plan (1) Diverticulitis Code(s): K57.92 - DVTRCLI OF INTEST, PART UNSP, W/O PERF OR ABSCESS W/O BLEED Status: Acute (2) Diabetes Code(s): E11.9 - TYPE 2 DIABETES MELLITUS WITHOUT COMPLICATIONS Status: Acute Qualifiers: Diabetes mellitus type: type 2 (3) HTN (hypertension) Code(s): I10 - ESSENTIAL (PRIMARY) HYPERTENSION Status: Acute - Plan pt up in bed states she has some burning in her urine -: will check ua -: cipro/flagyl ordered -: diet has been advanced * . Review of Systems - Review of Systems ENT: negative: Ear Pain, Ear Discharge, Nose Pain, Nose Discharge, Nose Congestion, Mouth Pain, Mouth Swelling, Throat Pain, Throat Swelling, Other Respiratory: negative: Cough, Dry, Shortness of Breath, Hemoptysis, SOB with Excertion, Pleuritic Pain, Sputum, Wheezing Gastrointestinal: negative: Nausea, Vomiting, Abdominal Pain, Diarrhea, Constipation, Melena, Hematochezia, Other - Medications/Allergies Allergies/Adverse Reactions: Allergies Allergy/AdvReac Type Severity Reaction Status Date / Time No Known Allergies Allergy Unverified 10/07/17 07:24 Medications: Current Medications Acetaminophen (Tylenol) 1,000 mg PO Q6HR [facility] Last Admin: 10/11/17 11:43 Dose: 1,000 mg Amlodipine Besylate (Norvasc) 10 mg PO DAILY [facility] Bisacodyl (Dulcolax) 10 mg PO DAILYPRN PRN PRN Reason: Constipation Ciprofloxacin (Cipro) 500 mg PO 06,1999 [facility] Stop: 10/15/17 20:01 Dextrose/Water (Dextrose 50%) 25 gm SLOW IVP PRN PRN PRN Reason: Hypoglycemia Enoxaparin Sodium (Lovenox) 40 mg SC 0900 [facility] Last Admin: 10/11/17 08:20 Dose: 40 mg Famotidine (Pepcid) 20 mg PO BID [facility] Glucagon (Glucagon) 1 mg IM PRN PRN PRN Reason: Hypoglycemia Insulin Glargine 10 units/ (Miscellaneous Medication) 0.1 mls @ 0 mls/hr SC QAM [facility] Last Admin: 10/11/17 10:21 Dose: 0.1 mls Insulin Glargine 5 units/ (Miscellaneous Medication) 0.05 mls @ 0 mls/hr SC HS [facility] Last Admin: 10/10/17 21:54 Dose: 0.05 mls Ibuprofen (Motrin) 800 mg PO Q8H PRN PRN Reason: Pain Insulin Human Lispro (Humalog) 0 units SC .MODERATE SLIDING SC PRN PRN Reason: Moderate Correctional Scale Last Admin: 10/10/17 16:59 Dose: 4 unit Labetalol HCl (Normodyne) 5 mg SLOW IVP Q4H PRN PRN Reason: SBP Greater Than 180 Lisinopril (Zestril) 20 mg PO DAILY [facility] Metronidazole (Flagyl) 500 mg PO TID [facility] Stop: 10/15/17 21:01 Last Admin: 10/11/17 10:22 Dose: 500 mg Senna/Docusate Sodium (Senokot S) 2 tab PO BID [facility] Last Admin: 10/11/17 10:22 Dose: 2 tab Sodium Chloride (Flush - Normal Saline) 10 ml IVF Q12HR [facility] Last Admin: 10/11/17 08:25 Dose: 10 ml Sodium Chloride (Flush - Normal Saline) 10 ml IVF PRN PRN PRN Reason: Saline Flush Tramadol HCl (Ultram) 50 mg PO Q6H PRN PRN Reason: Moderate Pain (4-6) Tramadol HCl (Ultram) 100 mg PO Q4H PRN PRN Reason: Severe Pain (7-10) Last Admin: 10/11/17 04:09 Dose: 100 mg
[2017-10-11 17:07] LABS: Bilirubin Negative (Negative); Blood, Urine Moderate (Negative); Clarity CLEAR (Clear); Glucose, Urine (Dipstick) 250 mg/dL (Negative); Leukocyte Trace (Negative); Nitrite Negative (Negative); Protein, Urine (Dipstick) Trace mg/dL (Neg-Trace); Urobilinogen 0.2 mg/dL (0.2-1.0); pH, Urine 7.5 (5.0-9.0)
[2017-10-11 17:09] LABS: Bacteria/HPF None Seen HPF (None Seen); Hyaline Casts/LPF 0-3 HYALINE CAST LPF (0-3 Hyaline); Pathc Cast-AUWi Flag 0.72 (0-2.49); Squamous Epithelial 0-3 HPF (0-3)
[2017-10-11] MEDS: HumaLOG 300 UNITS/3 ML VIAL SC PRN (18:28)
[2017-10-11] MEDS: Ciprofloxacin 500 MG TAB PO SCH (20:01)
[2017-10-11] MEDS: Insulin Glargine 5 UNITS in Pre-Filled Syringe 1 EACH SC SCH (21:26)
[2017-10-11] MEDS: Famotidine 20 MG TAB PO SCH (21:30)
[2017-10-12] MEDS: traMADol HCl 50 MG TAB PO PRN (03:20)
[2017-10-12] MEDS: Ondansetron HCl/PF 4 MG/2 ML Vial SLOW IVP PRN (05:11)
[2017-10-12] MEDS: Ciprofloxacin 500 MG TAB PO SCH ×2 (05:51→20:47)
[2017-10-12] MEDS: Acetaminophen 500 MG TAB PO SCH ×4 (05:51→23:47)
[2017-10-12 06:05] LABS: Anion Gap 14 mmol/L (10-20); BUN (Urea Nitrogen) 9 mg/dL (7.0-18.7); Calc. Creatinine Clearance 114 mL/min (70-130); Calcium 8.9 mg/dL (7.8-10.44); Carbon Dioxide 23 mmol/L (22-29); Chloride 99 mmol/L (98-107); Estimated GFR-MDRD 88; Glucose 160 mg/dL (70-105); Potassium 3.1 mmol/L (3.5-5.1); Sodium 133 mmol/L (136-145)
[2017-10-12] MEDS: Ibuprofen 800 MG TAB PO PRN ×2 (07:34→18:55)
[2017-10-12] MEDS ORDERED: Lisinopril 20 MG TAB PO SCH (09:00)
[2017-10-12] MEDS ORDERED: hydrALAZINE 20 MG/ML VIAL SLOW IVP PRN (09:28)
[2017-10-12] MEDS: Insulin Glargine 10 UNITS in Pre-Filled Syringe 1 EACH SC SCH (09:49)
[2017-10-12] MEDS: Senokot S 8.6-50 MG TAB PO SCH ×2 (09:52→21:23)
[2017-10-12] MEDS: Amlodipine 10 MG TAB PO SCH (09:52)
[2017-10-12] MEDS: Potassium Chloride 20 MEQ TAB PO SCH ×2 (09:52→17:18)
[2017-10-12] MEDS: Famotidine 20 MG TAB PO SCH ×2 (09:52→21:22)
[2017-10-12] MEDS: metroNIDAZOLE 500 MG TAB PO SCH ×3 (09:52→21:23)
[2017-10-12] MEDS: Enoxaparin Sodium 40 MG/0.4 ML SYRINGE SC SCH (09:53)
[2017-10-12] MEDS: HumaLOG 300 UNITS/3 ML VIAL SC PRN ×2 (11:30→21:16)
--- NOTE | 2017-10-12 14:22 | PDOC.PN ---
- Subjective Encounter Start Date: 10/12/17 Encounter Start Time: 09:15 Subjective: pt up in bed no complains - Objective Resuscitation Status: Resuscitation Status FULL:Full Resuscitation Vital Signs & Weight: Vital Signs (12 hours) Temp Pulse Resp BP Pulse Ox 10/12/17 11:05 98.7 F 75 16 157/99 H 98 10/12/17 09:52 79 10/12/17 08:47 97.9 F 79 18 10/12/17 08:15 97.9 F 79 16 160/104 H 97 10/12/17 03:52 98.2 F 61 16 162/99 H 96 Weight Weight 163 lb I&O: 10/11/17 10/12/17 10/13/17 06:59 06:59 06:59 Intake Total 2660 550 Output Total 2009 08 Balance 650 545 Result Diagrams: 10/10/17 05:23 10/12/17 05:06 Additional Labs: Accuchecks 10/12/17 10/12/17 10/11/17 10:50 05:59 21:24 POC Glucose 235 H 165 H 124 H 10/11/17 15:31 POC Glucose 181 H Phys Exam - Physical Examination HEENT: PERRLA, moist MMs, sclera anicteric, TM's clear, oral pharynx no lesions , 2+ tonsils Neck: no nodes, no JVD, supple, full ROM Respiratory: no wheezing, no rales, no rhonchi, wheezing present, clear to auscultation bilateral Cardiovascular: RRR, no significant murmur, no rub, gallop, irregular Gastrointestinal: soft, non-tender, no distention, positive bowel sounds Musculoskeletal: no edema, pulses present, edema present Dx/Plan (1) Diverticulitis Code(s): K57.92 - DVTRCLI OF INTEST, PART UNSP, W/O PERF OR ABSCESS W/O BLEED Status: Acute (2) Diabetes Code(s): E11.9 - TYPE 2 DIABETES MELLITUS WITHOUT COMPLICATIONS Status: Acute Qualifiers: Diabetes mellitus type: type 2 (3) HTN (hypertension) Code(s): I10 - ESSENTIAL (PRIMARY) HYPERTENSION Status: Acute - Plan will change her insulin to 70/30 since this is cheaper -: she still does not feel comfortable to administer insulin -: will need teaching about her colostomy. -: tolerating her soft diet. possible discharge in the [id number] if ok with -: surgery * . Review of Systems - Review of Systems ENT: negative: Ear Pain, Ear Discharge, Nose Pain, Nose Discharge, Nose Congestion, Mouth Pain, Mouth Swelling, Throat Pain, Throat Swelling, Other Respiratory: negative: Cough, Dry, Shortness of Breath, Hemoptysis, SOB with Excertion, Pleuritic Pain, Sputum, Wheezing Cardiovascular: negative: chest pain, palpitations, orthopnea, paroxysmal nocturnal dyspnea, edema, light headedness, other Gastrointestinal: negative: Nausea, Vomiting, Abdominal Pain, Diarrhea, Constipation, Melena, Hematochezia, Other Genitourinary: negative: Dysuria, Frequency, Incontinence, Hematuria, Retention , Other - Medications/Allergies Allergies/Adverse Reactions: Allergies Allergy/AdvReac Type Severity Reaction Status Date / Time No Known Allergies Allergy Unverified 10/07/17 07:24 Medications: Current Medications Acetaminophen (Tylenol) 1,000 mg PO Q6HR [facility] Last Admin: 10/12/17 11:30 Dose: 1,000 mg Amlodipine Besylate (Norvasc) 10 mg PO DAILY [facility] Last Admin: 10/12/17 09:52 Dose: 10 mg Bisacodyl (Dulcolax) 10 mg PO DAILYPRN PRN PRN Reason: Constipation Ciprofloxacin (Cipro) 500 mg PO 599,1999 [facility] Stop: 10/15/17 20:01 Last Admin: 10/12/17 05:51 Dose: 500 mg Dextrose/Water (Dextrose 50%) 25 gm SLOW IVP PRN PRN PRN Reason: Hypoglycemia Enoxaparin Sodium (Lovenox) 40 mg SC 09 [facility] Last Admin: 10/12/17 09:53 Dose: 40 mg Famotidine (Pepcid) 20 mg PO BID [facility] Last Admin: 10/12/17 09:52 Dose: 20 mg Glucagon (Glucagon) 1 mg IM PRN PRN PRN Reason: Hypoglycemia Hydralazine HCl (Apresoline) 5 mg SLOW IVP Q6H PRN PRN Reason: Blood Pressure Ibuprofen (Motrin) 800 mg PO Q8H PRN PRN Reason: Pain Last Admin: 10/12/17 07:34 Dose: 800 mg Insulin Human Isoph/Insulin Regular (Humulin 70/30) 5 units SC [facility] Insulin Human Isoph/Insulin Regular (Humulin 70/30) 5 units SC QAM [facility] Insulin Human Lispro (Humalog) 0 units SC .MODERATE SLIDING SC PRN PRN Reason: Moderate Correctional Scale Last Admin: 10/12/17 11:30 Dose: 4 unit Labetalol HCl (Normodyne) 5 mg SLOW IVP Q4H PRN PRN Reason: SBP Greater Than 180 Lisinopril (Zestril) 20 mg PO BID [facility] Metronidazole (Flagyl) 500 mg PO TID [facility] Stop: 10/15/17 21:01 Last Admin: 10/12/17 09:52 Dose: 500 mg Ondansetron HCl (Zofran) 4 mg SLOW IVP Q4H PRN PRN Reason: Nausea/Vomiting Last Admin: 10/12/17 05:11 Dose: 4 mg Potassium Chloride (K-Dur) 40 meq PO 0945,1700 [facility] Stop: 10/12/17 23:59 Last Admin: 10/12/17 09:52 Dose: 40 meq Senna/Docusate Sodium (Senokot S) 2 tab PO BID [facility] Last Admin: 10/12/17 09:52 Dose: 2 tab Sodium Chloride (Flush - Normal Saline) 10 ml IVF Q12HR [facility] Last Admin: 10/12/17 10:05 Dose: 10 ml Sodium Chloride (Flush - Normal Saline) 10 ml IVF PRN PRN PRN Reason: Saline Flush Tramadol HCl (Ultram) 50 mg PO Q6H PRN PRN Reason: Moderate Pain (4-6) Tramadol HCl (Ultram) 100 mg PO Q4H PRN PRN Reason: Severe Pain (7-10) Last Admin: 10/12/17 03:20 Dose: 100 mg
--- NOTE | 2017-10-12 15:25 | PRG ---
[id number] SUBJECTIVE: The patient is currently on the surgical floor. She is postop day #4 status post a Camacho wang procedure. Overnight, she has had no issues. She has tolerated a regular diet. She has been a mbulating frequently yesterday and already this morning without difficulty. OBJECTIVE: VITAL SIGNS: Temperature is 97.9, heart rate 79, blood pressure 160/104, heart rate 79, respirations 16, oxygen saturation 97% on room air. GENERAL: The patient is just now returning to bed from ambulating in the hallway. She appears comfo rtable in no distress. She is awake, alert, oriented and appropriate. HEENT: Unremarkable. LUNGS: Clear to auscultation bilaterally with good inspiratory and expiratory effort. HEART: Regular rate and rhythm. ABDOMEN: Soft, nontender, midline incision is clean, dry, and intact. Her colostomy shows a fair am ount of air in the bag, but no stool yet. EXTREMITIES: Neurovascularly intact x4. There is no peripheral edema. LABORATORY DATA: This morning, sodium 133, potassium 3.1, chloride 99, CO2 23, BUN 9, creatinine 0.7 1, glucose 160. There are no radiographs to review this morning. ASSESSMENT AND PLAN: 1. Status post postoperative day #4 status post Frankie procedure. 2. Hyponatremia. 3. Hypokalemia. 4. Hypertension. Plan will be to continue supportive care, electrolyte replacement and the medicine team has already s tarted the patient on antihypertensive. We will continue to follow the patient and await for her bow el function returned.
[2017-10-12] MEDS ORDERED: Insulin NPH/Reg Insulin Hm 300 UNITS/3 ML VIAL SC SCH (17:00)
[2017-10-12 18:48] VITALS: BMI 27.4
[2017-10-12] MEDS: Lisinopril 20 MG TAB PO SCH (21:22)
[2017-10-13] MEDS: Ibuprofen 800 MG TAB PO PRN (02:45)
[2017-10-13] MEDS: Ciprofloxacin 500 MG TAB PO SCH ×2 (06:28→20:22)
[2017-10-13] MEDS: Acetaminophen 500 MG TAB PO SCH ×4 (06:28→23:05)
[2017-10-13 07:41] LABS: #Eosinphils 0.3 thou/uL (0.0-0.7); #Lymphocytes 1.4 thou/uL (1.20-3.40); #Monocytes 0.5 thou/uL (0.11-0.59); #Neutrophils 7.2 thou/uL (1.40-6.50); %Basophils 0.2 % (0.0-1.0); %Eosinophils 3.4 % (0.0-10.0); %Monocytes 5.7 % (0.0-10.0); %Neutrophils 75.7 % (42.0-75.0); Hemoglobin 14.3 g/dL (12.0-16.0); Mean Corpuscular HGB CONC 33.3 g/dL (32.0-36.0); Mean Corpuscular Hemoglobin 32.3 pg (27.0-31.0); Mean Corpuscular Volume 96.9 fL (78.0-98.0); Mean Platelet Volume 8.6 fL (7.4-10.4); Platelet Count 274 thou/uL (130-400); RBC Distribution Width 11.4 % (11.5-14.5); Red Blood Cell (RBC) Count 4.44 mill/uL (4.20-5.40); White Blood Cell (WBC) Count 9.5 thou/uL (4.8-10.8)
[2017-10-13 08:01] LABS: Magnesium 1.7 mg/dL (1.6-2.6); Phosphorus 2.6 mg/dL (2.3-4.7)
[2017-10-13] MEDS: Ondansetron HCl/PF 4 MG/2 ML Vial SLOW IVP PRN (08:35)
[2017-10-13] MEDS: Lisinopril 20 MG TAB PO SCH ×2 (08:47→20:21)
[2017-10-13] MEDS: Famotidine 20 MG TAB PO SCH ×2 (08:47→20:22)
[2017-10-13] MEDS: Amlodipine 10 MG TAB PO SCH (08:47)
[2017-10-13] MEDS: Senokot S 8.6-50 MG TAB PO SCH ×2 (08:48→20:22)
[2017-10-13] MEDS: metroNIDAZOLE 500 MG TAB PO SCH ×3 (08:48→20:21)
[2017-10-13] MEDS: Enoxaparin Sodium 40 MG/0.4 ML SYRINGE SC SCH (08:50)
[2017-10-13] MEDS ORDERED: Insulin NPH/Reg Insulin Hm 300 UNITS/3 ML VIAL SC SCH (09:00)
[2017-10-13] MEDS ORDERED: Furosemide 20 MG TAB PO SCH (09:30)
[2017-10-13] MEDS ORDERED: Ketorolac Tromethamine 30 MG/ML VIAL IVP SCH (09:30)
[2017-10-13] MEDS: metFORMIN 500 MG TAB PO SCH ×2 (09:40→18:21)
[2017-10-13] MEDS: Metoprolol Tartrate 25 MG TAB PO SCH ×2 (09:41→20:23)
[2017-10-13] MEDS: Metoclopramide HCl 10 MG/2 ML VIAL IVP SCH ×2 (09:43→22:32)
--- NOTE | 2017-10-13 10:58 | RAD ---
2 VIEWS ABDOMEN: Date: 10/13/17 COMPARISON: None. HISTORY: Postoperative ileus. FINDINGS: Supine and upright views of the abdomen show a nonspecific, nonobstructive bowel gas pattern. Midlin e skin porfirio are seen. Stool is seen throughout the colon. No distended loops of small bowel are se en. IMPRESSION: Nonobstructive bowel gas pattern. POS: [facility]
[2017-10-13] MEDS: Ketorolac Tromethamine 30 MG/ML VIAL IVP SCH ×3 (12:03→23:05)
[2017-10-13] MEDS: HumaLOG 300 UNITS/3 ML VIAL SC PRN ×2 (12:04→18:24)
[2017-10-13 16:00] LABS: Anion Gap 12 mmol/L (10-20); BUN (Urea Nitrogen) 12 mg/dL (7.0-18.7); Calc. Creatinine Clearance 106 mL/min (70-130); Calcium 9.1 mg/dL (7.8-10.44); Carbon Dioxide 23 mmol/L (22-29); Chloride 102 mmol/L (98-107); Estimated GFR-MDRD 85; Glucose 168 mg/dL (70-105); Sodium 134 mmol/L (136-145)
[2017-10-13] MEDS ORDERED: Potassium Chloride 20 MEQ TAB PO SCH (16:45)
--- NOTE | 2017-10-13 18:14 | PDOC.PN ---
- Subjective Encounter Start Date: 10/13/17 Encounter Start Time: 11:15 Subjective: pt up in bed was nauseated - Objective Resuscitation Status: Resuscitation Status FULL:Full Resuscitation Vital Signs & Weight: Vital Signs (12 hours) Temp Pulse Resp BP BP BP BP 10/13/17 15:36 98.2 F 80 24 H 132/77 10/13/17 11:20 99.6 F 87 12 157/97 H 10/13/17 08:47 87 156/103 H 10/13/17 08:00 97.6 F 71 20 10/13/17 07:13 97.6 F 71 20 169/106 H Pulse Ox 10/13/17 15:36 99 10/13/17 11:20 99 10/13/17 08:47 10/13/17 08:00 97 10/13/17 07:13 97 Weight Admit Weight 155 lb Weight 155 lb I&O: 10/12/17 10/13/17 10/14/17 06:59 06:59 06:59 Intake Total 550 540 Output Total 5 270 Balance 545 270 Result Diagrams: 10/13/17 07:33 10/13/17 15:20 Additional Labs: Accuchecks 10/13/17 10/13/17 10/13/17 15:37 11:27 06:33 POC Glucose 168 H 170 H 183 H 10/12/17 20:51 POC Glucose 280 H Phys Exam - Physical Examination HEENT: PERRLA, moist MMs, sclera anicteric, TM's clear, oral pharynx no lesions , 2+ tonsils Neck: no nodes, no JVD, supple, full ROM Respiratory: no wheezing, no rales, no rhonchi, wheezing present, clear to auscultation bilateral Cardiovascular: RRR, no significant murmur, no rub, gallop, irregular Gastrointestinal: soft, non-tender, no distention, positive bowel sounds stool in colostomy Dx/Plan (1) Diverticulitis Code(s): K57.92 - DVTRCLI OF INTEST, PART UNSP, W/O PERF OR ABSCESS W/O BLEED Status: Acute (2) Diabetes Code(s): E11.9 - TYPE 2 DIABETES MELLITUS WITHOUT COMPLICATIONS Status: Acute Qualifiers: Diabetes mellitus type: type 2 (3) HTN (hypertension) Code(s): I10 - ESSENTIAL (PRIMARY) HYPERTENSION Status: Acute - Plan pt was nauseated this am -: kub no obs -: pt encouraged to walk -: bb added since pt's bp was still elevated * . Review of Systems - Review of Systems ENT: negative: Ear Pain, Ear Discharge, Nose Pain, Nose Discharge, Nose Congestion, Mouth Pain, Mouth Swelling, Throat Pain, Throat Swelling, Other Respiratory: negative: Cough, Dry, Shortness of Breath, Hemoptysis, SOB with Excertion, Pleuritic Pain, Sputum, Wheezing Cardiovascular: negative: chest pain, palpitations, orthopnea, paroxysmal nocturnal dyspnea, edema, light headedness, other Gastrointestinal: Nausea, Vomiting. negative: Abdominal Pain, Diarrhea, Constipation, Melena, Hematochezia, Other Genitourinary: negative: Dysuria, Frequency, Incontinence, Hematuria, Retention , Other - Medications/Allergies Allergies/Adverse Reactions: Allergies Allergy/AdvReac Type Severity Reaction Status Date / Time No Known Allergies Allergy Unverified 10/12/17 18:48 Medications: Current Medications Acetaminophen (Tylenol) 1,000 mg PO Q6HR [facility] Last Admin: 10/13/17 18:22 Dose: 1,000 mg Amlodipine Besylate (Norvasc) 10 mg PO DAILY [facility] Last Admin: 10/13/17 08:47 Dose: 10 mg Bisacodyl (Dulcolax) 10 mg PO DAILYPRN PRN PRN Reason: Constipation Ciprofloxacin (Cipro) 500 mg PO 00,1999 [facility] Stop: 10/15/17 20:01 Last Admin: 10/13/17 20:22 Dose: 500 mg Dextrose/Water (Dextrose 50%) 25 gm SLOW IVP PRN PRN PRN Reason: Hypoglycemia Enoxaparin Sodium (Lovenox) 40 mg SC 09 [facility] Last Admin: 10/13/17 08:50 Dose: 40 mg Famotidine (Pepcid) 20 mg PO BID [facility] Last Admin: 10/13/17 20:22 Dose: 20 mg Glucagon (Glucagon) 1 mg IM PRN PRN PRN Reason: Hypoglycemia Hydralazine HCl (Apresoline) 5 mg SLOW IVP Q6H PRN PRN Reason: Blood Pressure Ibuprofen (Motrin) 800 mg PO Q8H PRN PRN Reason: Pain Last Admin: 10/13/17 02:45 Dose: 800 mg Insulin Human Isoph/Insulin Regular (Humulin 70/30) 8 units SC QAM [facility] Insulin Human Isoph/Insulin Regular (Humulin 70/30) 8 units SC QPM[facility] Last Admin: 10/13/17 18:42 Dose: 8 unit Insulin Human Lispro (Humalog) 0 units SC .MODERATE SLIDING SC PRN PRN Reason: Moderate Correctional Scale Last Admin: 10/13/17 18:24 Dose: 2 unit Ketorolac Tromethamine (Toradol) 30 mg IVP ONE [facility] Stop: 10/18/17 09:31 Last Admin: 10/13/17 09:41 Dose: 30 mg Ketorolac Tromethamine (Toradol) 15 mg IVP Q6HR [facility] Stop: 10/18/17 12:01 Last Admin: 10/13/17 18:22 Dose: 15 mg Labetalol HCl (Normodyne) 5 mg SLOW IVP Q4H PRN PRN Reason: SBP Greater Than 180 Lisinopril (Zestril) 20 mg PO BID [facility] Last Admin: 10/13/17 20:21 Dose: 20 mg [facility] Last Admin: 10/13/17 18:21 Dose: 500 mg Metoclopramide HCl (Reglan) 10 mg IVP Q8HR [facility] Last Admin: 10/13/17 09:43 Dose: 10 mg Metoprolol Tartrate (Lopressor) 25 mg PO BID [facility] Last Admin: 10/13/17 20:23 Dose: 25 mg Metronidazole (Flagyl) 500 mg PO TID [facility] Stop: 10/15/17 21:01 Last Admin: 10/13/17 20:21 Dose: 500 mg Ondansetron HCl (Zofran) 4 mg SLOW IVP Q4H PRN PRN Reason: Nausea/Vomiting Last Admin: 10/13/17 08:35 Dose: 4 mg Senna/Docusate Sodium (Senokot S) 2 tab PO BID [facility] Last Admin: 10/13/17 20:22 Dose: 2 tab Sodium Chloride (Flush - Normal Saline) 10 ml IVF Q12HR [facility] Last Admin: 10/13/17 20:23 Dose: 10 ml Sodium Chloride (Flush - Normal Saline) 10 ml IVF PRN PRN PRN Reason: Saline Flush Tramadol HCl (Ultram) 50 mg PO Q6H PRN PRN Reason: Moderate Pain (4-6) Tramadol HCl (Ultram) 100 mg PO Q4H PRN PRN Reason: Severe Pain (7-10) Last Admin: 10/12/17 03:20 Dose: 100 mg
[2017-10-13] MEDS: Insulin NPH/Reg Insulin Hm 300 UNITS/3 ML VIAL SC SCH (18:42)
[2017-10-13] MEDS: traMADol HCl 50 MG TAB PO PRN (22:37)
[2017-10-14 05:02] LABS: #Eosinphils 0.6 thou/uL (0.0-0.7); #Lymphocytes 2.1 thou/uL (1.20-3.40); #Monocytes 0.8 thou/uL (0.11-0.59); #Neutrophils 6.3 thou/uL (1.40-6.50); %Basophils 0.4 % (0.0-1.0); %Eosinophils 6.2 % (0.0-10.0); %Lymphocytes 21.7 % (21.0-51.0); %Monocytes 8.4 % (0.0-10.0); %Neutrophils 63.4 % (42.0-75.0); Mean Corpuscular HGB CONC 33.6 g/dL (32.0-36.0); Mean Corpuscular Hemoglobin 32.7 pg (27.0-31.0); Mean Corpuscular Volume 97.4 fL (78.0-98.0); Mean Platelet Volume 8.3 fL (7.4-10.4); Platelet Count 290 thou/uL (130-400); RBC Distribution Width 11.5 % (11.5-14.5); Red Blood Cell (RBC) Count 3.97 mill/uL (4.20-5.40); White Blood Cell (WBC) Count 9.9 thou/uL (4.8-10.8)
[2017-10-14] MEDS: Acetaminophen 500 MG TAB PO SCH ×4 (05:05→23:32)
[2017-10-14] MEDS: Metoclopramide HCl 10 MG/2 ML VIAL IVP SCH ×3 (05:05→22:14)
[2017-10-14] MEDS: Ketorolac Tromethamine 30 MG/ML VIAL IVP SCH ×4 (05:06→23:32)
[2017-10-14] MEDS: Ciprofloxacin 500 MG TAB PO SCH ×2 (05:06→20:29)
[2017-10-14 05:52] LABS: Anion Gap 11 mmol/L (10-20); BUN (Urea Nitrogen) 15 mg/dL (7.0-18.7); Calc. Creatinine Clearance 89 mL/min (70-130); Calcium 9.1 mg/dL (7.8-10.44); Carbon Dioxide 27 mmol/L (22-29); Chloride 103 mmol/L (98-107); Estimated GFR-MDRD 70; Glucose 128 mg/dL (70-105); Magnesium 1.7 mg/dL (1.6-2.6); Potassium 3.9 mmol/L (3.5-5.1); Sodium 137 mmol/L (136-145)
[2017-10-14] MEDS: Senokot S 8.6-50 MG TAB PO SCH ×2 (08:36→20:29)
[2017-10-14] MEDS: Metoprolol Tartrate 25 MG TAB PO SCH ×2 (08:36→20:30)
[2017-10-14] MEDS: Lisinopril 20 MG TAB PO SCH ×2 (08:36→20:28)
[2017-10-14] MEDS: Magnesium Oxide 400 MG TAB PO SCH ×2 (08:36→20:29)
[2017-10-14] MEDS: metroNIDAZOLE 500 MG TAB PO SCH ×3 (08:36→20:30)
[2017-10-14] MEDS: metFORMIN 500 MG TAB PO SCH ×2 (08:36→18:08)
[2017-10-14] MEDS: Famotidine 20 MG TAB PO SCH ×2 (08:37→20:28)
[2017-10-14] MEDS: Enoxaparin Sodium 40 MG/0.4 ML SYRINGE SC SCH (08:37)
[2017-10-14] MEDS: Amlodipine 10 MG TAB PO SCH (08:37)
[2017-10-14] MEDS: Insulin NPH/Reg Insulin Hm 300 UNITS/3 ML VIAL SC SCH ×2 (09:11→18:09)
[2017-10-14] MEDS ORDERED: Magnesium Citrate 300 ML BOT PO SCH (09:45)
[2017-10-14] MEDS: Docusate 100 MG CAP PO SCH ×2 (11:59→20:29)
--- NOTE | 2017-10-14 14:52 | PRG ---
DATE OF SERVICE: 10/14/2017 SUBJECTIVE: The patient is currently on the surgical floor. She is status post Frankie procedure. She is postop day #6. Overnight, there were no reported issues. Yesterday, she did have some nause a and vomiting, which seems to have resolved after the addition of Reglan to her medical regimen. Th e patient has been up and ambulatory this morning already. There was noted to be air and a very smal l amount of stool in her colostomy bag. PHYSICAL EXAMINATION: VITAL SIGNS: Temperature is 97.4, heart rate 85, blood pressure 150/92, respirations 18, oxygen satu ration 98% on room air. GENERAL: The patient is resting comfortably in bed. She is awake, alert, and oriented x3. HEENT: Unremarkable. LUNGS: Clear to auscultation with good inspiratory and expiratory effort. HEART: Regular rate and rhythm. ABDOMEN: Slightly distended compared to yesterday. Her postop wounds are clean, dry, and intact. H er colostomy bag has a small amount of air and stool in it. EXTREMITIES: Neurovascularly intact x4. LABORATORY DATA AND IMAGING DATA: White blood cell count 9.9, hemoglobin 13.0, hematocrit 38.6, plat elets 290. Sodium 137, potassium 3.9, chloride 103, CO2 27, BUN 15, creatinine 0.87, glucose 128, ma gnesium 1.7, phosphorus 4.0. There are no radiographs to review this morning. ASSESSMENT: 1. Status post Frankie's procedure. 2. Hypomagnesemia. PLAN: Will be to continue supportive care, electrolyte replacement, and await bowel function return. The evaluation and examination were done with Dr. Newton during rounds this morning.
--- NOTE | 2017-10-14 15:35 | PDOC.PN ---
- Subjective Encounter Start Date: 10/14/17 Encounter Start Time: 12:30 Subjective: PT up in bed no complains - Objective Resuscitation Status: Resuscitation Status FULL:Full Resuscitation Vital Signs & Weight: Vital Signs (12 hours) Temp Pulse Resp BP Pulse Ox 10/14/17 10:51 98.6 F 70 16 127/88 99 10/14/17 08:37 85 10/14/17 08:29 97.4 F L 85 18 150/92 H 98 10/14/17 08:00 97.4 F L 85 18 98 10/14/17 04:18 98.3 F 63 17 118/80 99 Weight Admit Weight 155 lb Weight 155 lb I&O: 10/13/17 10/14/17 10/15/17 06:59 06:59 06:59 Intake Total 540 1140 Output Total 270 805 Balance 270 335 Result Diagrams: 10/14/17 04:36 10/14/17 04:36 Additional Labs: Accuchecks 10/14/17 10/14/17 10/13/17 10:56 06:00 20:21 POC Glucose 140 H 123 H 163 H 10/13/17 15:37 POC Glucose 168 H Phys Exam - Physical Examination HEENT: PERRLA, moist MMs, sclera anicteric, TM's clear, oral pharynx no lesions , 2+ tonsils Neck: no nodes, no JVD, supple, full ROM Respiratory: no wheezing, no rales, no rhonchi, wheezing present, clear to auscultation bilateral Cardiovascular: RRR, no significant murmur, no rub, gallop, irregular Gastrointestinal: soft, non-tender, no distention, positive bowel sounds Dx/Plan (1) Diverticulitis Code(s): K57.92 - DVTRCLI OF INTEST, PART UNSP, W/O PERF OR ABSCESS W/O BLEED Status: Acute (2) Diabetes Code(s): E11.9 - TYPE 2 DIABETES MELLITUS WITHOUT COMPLICATIONS Status: Acute Qualifiers: Diabetes mellitus type: type 2 (3) HTN (hypertension) Code(s): I10 - ESSENTIAL (PRIMARY) HYPERTENSION Status: Acute - Plan possible discharge in am -: pt doing well got mag citrate today -: no more nausea -: she is learning how to administer herself insulin * . Review of Systems - Review of Systems ENT: negative: Ear Pain, Ear Discharge, Nose Pain, Nose Discharge, Nose Congestion, Mouth Pain, Mouth Swelling, Throat Pain, Throat Swelling, Other Respiratory: negative: Cough, Dry, Shortness of Breath, Hemoptysis, SOB with Excertion, Pleuritic Pain, Sputum, Wheezing Cardiovascular: negative: chest pain, palpitations, orthopnea, paroxysmal nocturnal dyspnea, edema, light headedness, other Gastrointestinal: negative: Nausea, Vomiting, Abdominal Pain, Diarrhea, Constipation, Melena, Hematochezia, Other - Medications/Allergies Allergies/Adverse Reactions: Allergies Allergy/AdvReac Type Severity Reaction Status Date / Time No Known Allergies Allergy Unverified 10/12/17 18:48 Medications: Current Medications Acetaminophen (Tylenol) 1,000 mg PO Q6HR [facility] Last Admin: 10/14/17 11:59 Dose: 1,000 mg Amlodipine Besylate (Norvasc) 10 mg PO DAILY [facility] Last Admin: 10/14/17 08:37 Dose: 10 mg Ciprofloxacin (Cipro) 500 mg PO 0600,2000 [facility] Stop: 10/15/17 20:01 Last Admin: 10/14/17 05:06 Dose: 500 mg Dextrose/Water (Dextrose 50%) 25 gm SLOW IVP PRN PRN PRN Reason: Hypoglycemia Docusate Sodium (Colace) 100 mg PO BID [facility] Last Admin: 10/14/17 11:59 Dose: 100 mg Enoxaparin Sodium (Lovenox) 40 mg SC 0900 [facility] Last Admin: 10/14/17 08:37 Dose: 40 mg Famotidine (Pepcid) 20 mg PO BID [facility] Last Admin: 10/14/17 08:37 Dose: 20 mg Glucagon (Glucagon) 1 mg IM PRN PRN PRN Reason: Hypoglycemia Hydralazine HCl (Apresoline) 5 mg SLOW IVP Q6H PRN PRN Reason: Blood Pressure Ibuprofen (Motrin) 800 mg PO Q8H PRN PRN Reason: Pain Last Admin: 10/13/17 02:45 Dose: 800 mg Insulin Human Isoph/Insulin Regular (Humulin 70/30) 8 units SC QAM [facility] Last Admin: 10/14/17 09:11 Dose: 8 unit Insulin Human Isoph/Insulin Regular (Humulin 70/30) 8 units SC QPM[facility] Last Admin: 10/13/17 18:42 Dose: 8 unit Insulin Human Lispro (Humalog) 0 units SC .MODERATE SLIDING SC PRN PRN Reason: Moderate Correctional Scale Last Admin: 10/13/17 18:24 Dose: 2 unit Ketorolac Tromethamine (Toradol) 30 mg IVP ONE [facility] Stop: 10/18/17 09:31 Last Admin: 10/13/17 09:41 Dose: 30 mg Ketorolac Tromethamine (Toradol) 15 mg IVP Q6HR [facility] Stop: 10/18/17 12:01 Last Admin: 10/14/17 11:59 Dose: 15 mg Labetalol HCl (Normodyne) 5 mg SLOW IVP Q4H PRN PRN Reason: SBP Greater Than 180 Lisinopril (Zestril) 20 mg PO BID [facility] Last Admin: 10/14/17 08:36 Dose: 20 mg Magnesium Oxide (Magnesium Oxide) 400 mg PO BID [facility] Last Admin: 10/14/17 08:36 Dose: 400 mg Metformin HCl (Glucophage) 500 mg PO BID[facility] Last Admin: 10/14/17 08:36 Dose: 500 mg Metoclopramide HCl (Reglan) 10 mg IVP Q8HR [facility] Last Admin: 10/14/17 14:47 Dose: 10 mg Metoprolol Tartrate (Lopressor) 25 mg PO BID [facility] Last Admin: 10/14/17 08:36 Dose: 25 mg Metronidazole (Flagyl) 500 mg PO TID [facility] Stop: 10/15/17 21:01 Last Admin: 10/14/17 14:48 Dose: 500 mg Ondansetron HCl (Zofran) 4 mg SLOW IVP Q4H PRN PRN Reason: Nausea/Vomiting Last Admin: 10/13/17 08:35 Dose: 4 mg Senna/Docusate Sodium (Senokot S) 2 tab PO BID [facility] Last Admin: 10/14/17 08:36 Dose: 2 tab Sodium Chloride (Flush - Normal Saline) 10 ml IVF Q12HR [facility] Last Admin: 10/14/17 08:38 Dose: 10 ml Sodium Chloride (Flush - Normal Saline) 10 ml IVF PRN PRN PRN Reason: Saline Flush Last Admin: 10/14/17 05:08 Dose: 10 ml Tramadol HCl (Ultram) 50 mg PO Q6H PRN PRN Reason: Moderate Pain (4-6) Tramadol HCl (Ultram) 100 mg PO Q4H PRN PRN Reason: Severe Pain (7-10) Last Admin: 10/13/17 22:37 Dose: 100 mg
[2017-10-14] MEDS: Ondansetron HCl/PF 4 MG/2 ML Vial SLOW IVP PRN ×2 (16:04→20:36)
[2017-10-14] MEDS: HumaLOG 300 UNITS/3 ML VIAL SC PRN (18:10)
[2017-10-14] MEDS: traMADol HCl 50 MG TAB PO PRN (20:33)
[2017-10-15] MEDS: Acetaminophen 500 MG TAB PO SCH ×4 (05:16→23:13)
[2017-10-15] MEDS: Ciprofloxacin 500 MG TAB PO SCH ×2 (05:16→20:10)
[2017-10-15] MEDS: Ketorolac Tromethamine 30 MG/ML VIAL IVP SCH ×4 (05:16→23:13)
[2017-10-15] MEDS: Metoclopramide HCl 10 MG/2 ML VIAL IVP SCH ×3 (05:16→21:28)
[2017-10-15] MEDS: Enoxaparin Sodium 40 MG/0.4 ML SYRINGE SC SCH (08:18)
[2017-10-15] MEDS: Amlodipine 10 MG TAB PO SCH (08:19)
[2017-10-15] MEDS: metFORMIN 500 MG TAB PO SCH ×2 (08:19→17:48)
[2017-10-15] MEDS: Magnesium Oxide 400 MG TAB PO SCH ×2 (08:19→20:10)
[2017-10-15] MEDS: Senokot S 8.6-50 MG TAB PO SCH ×2 (08:19→20:10)
[2017-10-15] MEDS: metroNIDAZOLE 500 MG TAB PO SCH ×3 (08:19→20:09)
[2017-10-15] MEDS: Docusate 100 MG CAP PO SCH ×2 (08:19→20:10)
[2017-10-15] MEDS: Metoprolol Tartrate 25 MG TAB PO SCH ×2 (08:20→20:09)
[2017-10-15] MEDS: Lisinopril 20 MG TAB PO SCH ×2 (08:20→20:11)
[2017-10-15] MEDS: Famotidine 20 MG TAB PO SCH ×2 (08:20→20:10)
[2017-10-15] MEDS: Insulin NPH/Reg Insulin Hm 300 UNITS/3 ML VIAL SC SCH ×2 (08:20→17:48)
--- NOTE | 2017-10-15 10:32 | PRG ---
DATE OF SERVICE: 10/15/2017 SUBJECTIVE: Ms. Spencer is a 47-year-old woman who is postoperative day #7 status post Frankie's proc edure. The patient reports adequate pain control. She had one bout of small volume emesis yesterday , but denies any nausea at this time. She ambulates with minimum difficulty. PHYSICAL EXAMINATION: VITAL SIGNS: Currently includes blood pressure 130/84, pulse 82, respiratory rate is 16, temperature 98.4 degrees Fahrenheit, oxygen saturation is 98% on room air. HEENT: Examination reveals normocephalic and atraumatic. HEART: Reveals regular rate and rhythm, no murmurs or gallops auscultated. LUNGS: Clear to auscultation bilaterally. Breathing is regular and unlabored. ABDOMEN: Soft, nondistended. She has mild incisional tenderness to palpation. Incision itself is i ntact, clean, and dry. Colostomy is viable and functional with liquid stool and minimum gas. IMPRESSION: Postoperative day #7 status post partial laparotomy with Frankie's procedure. The dragan ent is hemodynamically stable. We will advance her diet and activity. PLAN: If she continues to tolerate diet today, we will consider discharge to home tomorrow. The pat ient indicates understanding of the information given. I have answered her questions.
[2017-10-15] MEDS: Ondansetron HCl/PF 4 MG/2 ML Vial SLOW IVP PRN (11:52)
[2017-10-15] MEDS: HumaLOG 300 UNITS/3 ML VIAL SC PRN (21:31)
[2017-10-16] MEDS: Acetaminophen 500 MG TAB PO SCH ×2 (06:51→12:15)
[2017-10-16] MEDS: Ketorolac Tromethamine 30 MG/ML VIAL IVP SCH ×2 (06:51→12:14)
[2017-10-16] MEDS: Metoclopramide HCl 10 MG/2 ML VIAL IVP SCH ×2 (06:51→17:12)
[2017-10-16] MEDS: Amlodipine 10 MG TAB PO SCH (09:05)
[2017-10-16] MEDS: Famotidine 20 MG TAB PO SCH (09:05)
[2017-10-16] MEDS: Magnesium Oxide 400 MG TAB PO SCH (09:05)
[2017-10-16] MEDS: Docusate 100 MG CAP PO SCH (09:06)
[2017-10-16] MEDS: metFORMIN 500 MG TAB PO SCH ×2 (09:07→19:21)
[2017-10-16] MEDS: Lisinopril 20 MG TAB PO SCH (09:07)
[2017-10-16] MEDS: Senokot S 8.6-50 MG TAB PO SCH (09:07)
[2017-10-16] MEDS: Metoprolol Tartrate 25 MG TAB PO SCH (09:07)
[2017-10-16] MEDS: Insulin NPH/Reg Insulin Hm 300 UNITS/3 ML VIAL SC SCH ×2 (09:08→19:21)
[2017-10-16] MEDS: Enoxaparin Sodium 40 MG/0.4 ML SYRINGE SC SCH (09:15)
--- NOTE | 2017-10-16 10:52 | PRG ---
DATE OF SERVICE: 10/16/2017 SUBJECTIVE: Ms. Spencer is a 47-year-old woman who is postop day #8 status post Frankie's procedure. The patient is awake and alert today. She reports adequate pain control. She tolerates diet. She is having normal bowel and urinary function. OBJECTIVE: VITAL SIGNS: Today includes blood pressure 118/75, pulse is 76, respiratory rate 16, maximum tempera ture in the last 24 hours is 98.1 degrees Fahrenheit, oxygen saturation is 98% on room air. HEART: Reveals regular rate and rhythm, no murmurs or gallops auscultated. CHEST: Clear to auscultation bilaterally. Breathing regular and unlabored. ABDOMEN: Soft, nontender, nondistended. Colostomy is viable and quite functional. [place] were rem be. The wound remains well approximated and healed. IMPRESSION AND PLAN: Postop day #8 status post sigmoidectomy with end colostomy. The patient is hem odynamically stable and is fit for discharge from a surgical standpoint at the discretion of the [place] [facility]. The patient is to see me in the clinic in 2 weeks. She may call me with any questions or problems in the interim including intolerance to oral intake, fever in excess of 101 degrees Fahre nheit, any abnormal drainage from the incisional wound which is dry today. The patient has expressed deep gratitude for the care rendered to her during this hospitalization and surgery.
[2017-10-16 16:26] VITALS: BP 132/83; TEMP 98.1
== END 2017-10-16 17:00 | disposition home or self-care (01) | DRG 330 ==
LOC: ERS 04:34 → T4-A 06:10 → SURG B 10-08 18:26
PROVIDERS: ADMIT Internal Medicine; ATTEND Internal Medicine
PROC: 0DBN0ZZ Excision of Sigmoid Colon, Open Approach (ICD-10-PCS; principal; 2017-10-08)
PROC: 0D1M0Z4 Bypass Descending Colon to Cutaneous, Open Approach (ICD-10-PCS; 2017-10-08)
PROC: 0DNU4ZZ Release Omentum, Percutaneous Endoscopic Approach (ICD-10-PCS; 2017-10-08)
PROC: 0DN84ZZ Release Small Intestine, Percutaneous Endoscopic Approach (ICD-10-PCS; 2017-10-08)
PROC: 0DNW4ZZ Release Peritoneum, Percutaneous Endoscopic Approach (ICD-10-PCS; 2017-10-08)
DX: K57.20 Diverticulitis of large intestine with perforation and abscess without bleeding (principal); E87.1 Hypo-osmolality and hyponatremia; E11.9 Type 2 diabetes mellitus without complications; I10 Essential (primary) hypertension; Z87.442 Personal history of urinary calculi; Z90.710 Acquired absence of both cervix and uterus; K66.0 Peritoneal adhesions (postprocedural) (postinfection); K63.9 Disease of intestine, unspecified; E83.42 Hypomagnesemia; E87.6 Hypokalemia; E83.39 Other disorders of phosphorus metabolism
CPT/HCPCS: 36415; 36416; 74018; 74019; 80048; 80053; 81001; 83036; 83690; 83735; 84100; 85025; 88307; 96361; 96374; A4216; G8978-GP-CL; G8979-GP-CJ; J0744; J1650; J1885; J1940; J2001; J2250; J2270; J2405; J2543; J2550; J2704; J2765; J3010; J7050; S0028

== ENCOUNTER 2018-05-28 00:50 | Outpatient (CLI) | payer SELFPAY ==
[2018-05-28 14:36] LABS: #Eosinphils 0.2 thou/uL (0.0-0.7); #Lymphocytes 1.9 thou/uL (1.20-3.40); #Monocytes 0.4 thou/uL (0.11-0.59); #Neutrophils 3.7 thou/uL (1.40-6.50); %Basophils 0.2 % (0.0-1.0); %Eosinophils 3.2 % (0.0-10.0); %Lymphocytes 30.2 % (21.0-51.0); %Monocytes 5.9 % (0.0-10.0); %Neutrophils 60.5 % (42.0-75.0); Hemoglobin 13.6 g/dL (12.0-16.0); Mean Corpuscular Hemoglobin 31.1 pg (27.0-31.0); Mean Corpuscular Volume 94.4 fL (78.0-98.0); Mean Platelet Volume 9.4 fL (7.4-10.4); Platelet Count 265 thou/uL (130-400); RBC Distribution Width 11.7 % (11.5-14.5); Red Blood Cell (RBC) Count 4.37 mill/uL (4.20-5.40); White Blood Cell (WBC) Count 6.1 thou/uL (4.8-10.8)
[2018-05-28 14:51] LABS: Hemoglobin A1c 9.5 % (4.0-6.0)
[2018-05-28 14:58] LABS: Anion Gap 14 mmol/L (10-20); BUN (Urea Nitrogen) 13 mg/dL (7.0-18.7); Calc. Creatinine Clearance 0 mL/min (70-130); Calcium 9.7 mg/dL (7.8-10.44); Carbon Dioxide 20 mmol/L (22-29); Chloride 108 mmol/L (98-107); Estimated GFR-MDRD 79; Glucose 154 mg/dL (70-105); Potassium 3.4 mmol/L (3.5-5.1); Sodium 139 mmol/L (136-145)
--- NOTE | 2018-05-29 07:10 | EKG ---
Test Reason : Blood Pressure : / mmHG Vent. Rate : 075 BPM Atrial Rate : 075 BPM P-R Int : 162 ms QRS Dur : 088 ms QT Int : 384 ms P-R-T Axes : 057 053 048 degrees QTc Int : 428 ms Normal sinus rhythm Normal ECG No previous ECGs available Confirmed by JET MALIK ([id number]) on 05/29/2018 7:09:48 AM Referred By: JORDYN Confirmed By:JET MALIK
== END 2018-05-28 00:51 | disposition home or self-care (01) ==
LOC: LABBT 00:50
PROVIDERS: ATTEND Surgery
DX: Z01.818 Encounter for other preprocedural examination (principal); K57.20 Diverticulitis of large intestine with perforation and abscess without bleeding
CPT/HCPCS: 80048; 83036; 85025; 93005; 93010

== ENCOUNTER 2018-05-28 09:18 | Outpatient (CLI) | payer OTHER ==
--- NOTE | 2018-05-28 12:22 | RAD ---
GASTROGRAFIN RECTAL ENEMA FOR COLOSTOMY REVERSAL: HISTORY: Colostomy for a patient with ruptured sigmoid colon diverticulitis. COMPARISON: None. 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 No differential air fluid levels. No pneumoperitoneum. Postoperative changes with clips re noted. Gastrografin was administered in retrograde fashion. Gastrografin opacifies the Avalos's pouch. No evidence of leak or extravasation. IMPRESSION: No evidence of leak or extravasation. POS: JANEE
== END 2018-05-28 09:19 | disposition home or self-care (01) ==
LOC: RAD 09:18
PROVIDERS: ATTEND Surgery
DX: K57.20 Diverticulitis of large intestine with perforation and abscess without bleeding (principal)
CPT/HCPCS: 74280

== ENCOUNTER 2018-05-28 11:15 | Inpatient (IN) | payer OTHER, SELFPAY ==
[2018-06-05] MEDS ORDERED: Fentanyl 100 MCG/2 ML VIAL ONE ×3 (06:18→07:59)
[2018-06-05] MEDS ORDERED: Neomycin-Polymyxin 1 ML AMP ONE (06:38)
[2018-06-05] MEDS ORDERED: cefOXitin Sodium/Dextrose,Iso 2 GM in Premix Bag 1 BAG IVPB SCH (06:45)
[2018-06-05] MEDS ORDERED: Midazolam HCl 2 mg/2 ml Vial ONE (06:45)
[2018-06-05] MEDS ORDERED: cefOXitin 2 GM in Sodium Chloride 0.9% 100 ML IVPB SCH (06:45)
[2018-06-05] MEDS ORDERED: Labetalol HCl 100 MG/20 ML VIAL ONE (06:56)
[2018-06-05] MEDS ORDERED: Ketamine 50 MG/ML (10ML VIAL) ONE (07:52)
[2018-06-05] MEDS ORDERED: Albumin 5% 500 ML ONE (07:52)
[2018-06-05] MEDS ORDERED: ceFOXitin 1 GM VIAL ONE (12:12)
[2018-06-05] MEDS ORDERED: Bupivacaine HCl 0.5%/Epinephrine 1:200,000/PF 30 ml Vial ONE (13:19)
[2018-06-05] MEDS ORDERED: diphenhydrAMINE 50 MG/ML VIAL IVP PRN (13:28)
[2018-06-05] MEDS ORDERED: diphenhydrAMINE 25 MG CAP PO PRN (13:28)
[2018-06-05] MEDS ORDERED: HumaLOG 300 UNITS/3 ML VIAL SC PRN (13:28)
[2018-06-05] MEDS ORDERED: Ondansetron PF 4 MG/2 ML Vial IVP PRN (13:28)
[2018-06-05] MEDS ORDERED: Dextrose 50% Abboject 50 ML SYRINGE SLOW IVP PRN (13:28)
[2018-06-05] MEDS ORDERED: diphenhydrAMINE 50 MG/ML VIAL IM PRN (13:28)
[2018-06-05] MEDS ORDERED: Naloxone HCl 0.4 mg/ml Vial IV PRN (13:28)
[2018-06-05] MEDS ORDERED: Dextrose 5% in Water 1,000 ML IV PRN (13:28)
[2018-06-05] MEDS ORDERED: Promethazine HCl 25 MG/ML VIAL IM PRN ×2 (13:28→14:05)
[2018-06-05] MEDS ORDERED: Communication Order-Pharmacy FS SCH (13:30)
[2018-06-05] MEDS ORDERED: Promethazine HCl 25 MG/ML VIAL ONE (13:40)
[2018-06-05] MEDS ORDERED: PROPOFOL 200 MG/20 ML VIAL ONE (13:44)
[2018-06-05] MEDS ORDERED: Dexamethasone 20 MG/5 ML VIAL ONE (13:44)
[2018-06-05] MEDS ORDERED: ePHEDrine 50 MG/ML VIAL ONE (13:44)
[2018-06-05] MEDS ORDERED: Lidocaine 1% PF 5 ML VIAL ONE (13:44)
[2018-06-05] MEDS ORDERED: Rocuronium Bromide 10 MG/ML (10ML VIAL) ONE (13:44)
[2018-06-05] MEDS ORDERED: Ondansetron PF 4 MG/2 ML Vial ONE ×2 (13:44→15:02)
[2018-06-05] MEDS ORDERED: PHENYLEPHRINE-NS 100 MCG/ML 10 ML SYRINGE ONE (13:44)
[2018-06-05] MEDS ORDERED: Ketorolac Tromethamine 30 MG/ML VIAL ONE (13:44)
[2018-06-05] MEDS ORDERED: HumaLOG 300 UNITS/3 ML VIAL ONE (14:00)
[2018-06-05] MEDS ORDERED: Ondansetron HCl/PF 4 MG/2 ML Vial IVP PRN (14:05)
[2018-06-05] MEDS ORDERED: Promethazine HCl 25 MG/ML VIAL SLOW IVP PRN (14:05)
[2018-06-05] MEDS: Sodium Chloride 0.9% 1,000 ML IV SCH ×2 (15:40→22:29)
[2018-06-05] MEDS ORDERED: Amlodipine 10 MG TAB PO SCH (17:30)
[2018-06-05] MEDS ORDERED: Metoprolol Tartrate 25 MG TAB PO SCH (17:30)
[2018-06-05] MEDS ORDERED: Lisinopril 20 MG TAB PO SCH (17:30)
[2018-06-05] MEDS: cefOXitin 2 GM in Sodium Chloride 0.9% 100 ML IVPB SCH (17:33)
[2018-06-05] MEDS: Ketorolac Tromethamine 30 MG/ML VIAL IVP SCH (17:33)
[2018-06-05] MEDS: HumaLOG 300 UNITS/3 ML VIAL SC PRN (17:55)
[2018-06-05] MEDS ORDERED: hydrALAZINE 20 MG/ML VIAL SLOW IVP PRN (18:10)
--- NOTE | 2018-06-05 18:46 | OP ---
DATE OF PROCEDURE: 06/05/2018 PREOPERATIVE DIAGNOSIS: Status post Frankie's procedure for acute diverticulitis with perforation and abscess. POSTOPERATIVE DIAGNOSES: 1. Status post Frankie's procedure for acute diverticulitis with perforation and abscess. 2. Extensive intraabdominal adhesions. PROCEDURES PERFORMED: 1. Exploratory laparotomy. 2. Extensive adhesiolysis. 3. Colostomy takedown with colorectal anastomosis. 4. Placement of feeding nasojejunal tube. ANESTHESIA: General endotracheal. ESTIMATED BLOOD LOSS: 250 mL. FLUIDS GIVEN: 1400 mL of crystalloids and 500 mL of 5% albumin. URINARY OUTPUT: 800 mL of clear catherine urine. INDICATIONS FOR OPERATION: A 47-year-old woman previously underwent laparotomy with Frankie's procedure for acute diverticulitis, which failed medical management. The patient was brought to the operating room today for colostomy closure. Findings are consistent with extensive intraabdominal adhesions. No other abnormal masses were identified. There was a fair amount of chronic inflammation in the deep pelvis. No active process or purulence present. DESCRIPTION OF PROCEDURE: Informed consent was obtained from the patient, she was brought to the operating room and placed in supine position. Following general anesthesia, the patient was placed in lithotomy position. Lion catheter was inserted and placed to bedside drain. Nasogastric tube was inserted and placed to wall suction. Abdomen was sterilely prepped and draped in usual fashion. Midline incision was made using #10 scalpel. Incision was carried through subcutaneous tissues maintaining hemostasis using cautery. Fascia was incised in midline exposing the peritoneum, which was carefully entered using Metzenbaum scissors. Immediately, extensive amount of intraabdominal adhesions was encountered involving small bowel, omentum, and abdominal wall. Meticulous adhesiolysis ensued using Metzenbaum scissors, alternated with cautery. Care was taken to avoid any enterotomies. Small bowel was then run from the ligament of Treitz to terminal ileum, finding no pathology. Large intestine was inspected from the cecum through the ascending, transverse colon down to the level of the colostomy exit. We were then able to dissect out the Frankie's pouch from dense adhesions within the pelvis. Care was taken to avoid devascularization of the pouch. Then, turned my attention to the descending colon as it exited the abdominal cavity through the ostomy. The mesocolon was dissected off the abdominal wall. I was then able to apply contour stapling device to divide the colon just prior to exit of the abdominal wall. The left colon was then mobilized, sewed up the staple end, will easily reach the pelvis. At this juncture, the staple line of the previous Frankie's pouch was excised and the rectum was dilated to a 29 anal dilator. We chose to use a 25 EEA stapler. A pursestring suture was applied, the rectal pouch and the mushroom end of the 25 EEA were embedded, and the pursestring suture was cinched into place. I then made a colotomy through the tenia of the descending colon approximately 8 cm from the staple line. Through this, 25 anal dilator was introduced, dilating the colon and this was followed with introduction of the 25 EEA stapler. The spike was deployed through the staple line and connected to the mushroom end of the EEA stapler. Stapler was fired and functional end-to-end colorectal anastomosis was achieved. The previous colotomy was closed vertically using two layers of 3-0 silk suture. Abdominal cavity was copiously irrigated, cleared with saline solution, noting good hemostasis in place. At this juncture, all sponges and instruments were removed and accounted for. The anastomosis was tested under saline as air was instilled per rectum and minor leak. The lateral edge of the anastomosis was repaired with a single stitch of 3-0 silk. The abdominal cavity was again re-irrigated until it was clear. At this juncture, feeding nasojejunal tube was inserted by Anesthesia Department, which was palpated by myself within the gastric lumen. I manipulated the tip of this catheter into proximal small bowel without resistance. I placed a #19 Keny drain in the deep pelvis, allowing this to exit the abdominal cavity through a separate stab incision. The drain was secured to anterior abdominal wall using 2-0 silk suture. I then placed a sheet of Seprafilm in the pelvis returning small bowel over this, and a second sheet of Seprafilm was placed over the remainder of the small bowel. Omentum was drawn over this. Fascia was approximated in the midline using a running stitch of #1 single stranded PDS. Subcutaneous tissues were pulse lavaged with 3 L of saline. We did use a separate instruments at closure of the skin. Prior to this, deep tissues were approximated using interrupted sutures of 2-0 Vicryl. Prior to fascial closure, the colostomy exit site was freshened. The stay sutures were excised, and the bowel was reduced into the subcutaneous pocket. Fascia was closed within the abdominal cavity using interrupted sutures of 0 Vicryl. Skin incisions were closed using porfirio. Sterile dressings were applied. I then turned my attention to the previous colostomy site. An elliptical transverse incision was made using 15 scalpel. The colostomy was dissected down to the level of the fascia. Adherent tissues were excised, and the colostomy was passed off the operative field. Fascia was closed using interrupted sutures of 0 Vicryl. Subcutaneous tissues were pulse lavaged with 500 mL of saline, noting good hemostasis in place. Deep tissues were approximated using interrupted sutures of 2-0 Vicryl. Skin was loosely approximated using porfirio. Sterile dressings were applied. The patient tolerated the operation without any apparent complication and was returned to recovery room in satisfactory condition. Job ID: [id number]
[2018-06-05] MEDS: Famotidine/PF 20 mg/2ml Vial SLOW IVP SCH (20:49)
[2018-06-05] MEDS ORDERED: Sodium Chloride 0.9% 500 ML IVPB SCH (22:30)
--- NOTE | 2018-06-06 00:17 | HP ---
REFERRING PHYSICIAN: None. SURGEON: Jorge Newton DO CONSULTING PHYSICIAN: None. HISTORY OF PRESENT ILLNESS: Ms. Spencer is reporting to the hospital today for a scheduled colostomy reversal, status post diverticulitis in May of 2017, where Dr. Newton performed a diagnostic laparotomy, laparoscopic extensive adhesiolysis, exploratory laparotomy and sigmoidectomy with end colostomy. The patient appears well and has performed all of her preoperative evaluation. She is to have her colostomy reversal today by Dr. Newton and be admitted to the hospital postoperatively. PAST MEDICAL HISTORY: Significant for hypertension, type 2 diabetes, and diverticulitis. PAST SURGICAL HISTORY: Positive for hysterectomy, appendectomy, and removal of kidney stone as well as sigmoidectomy with end colostomy in [address] Newton. SOCIAL HISTORY: She drinks occasionally. Denies drug or tobacco use. MEDICATIONS: Include: 1. Amlodipine. 2. Humulin. 3. Lisinopril. 4. Metoprolol. 5. Metformin. 6. Sennosides. 7. Docusate sodium. ALLERGIES: NO KNOWN DRUG ALLERGIES. PHYSICAL EXAMINATION: VITAL SIGNS: Temperature 98.5, pulse 100, respirations 16, saturation 96% on room air, blood pressure 161/103. GENERAL: Well-appearing female sitting up in bed, no signs of acute distress. ABDOMEN: Soft, nontender, nondistended with colostomy in place. PULMONARY: Equal chest rise and fall. Equal breath sounds bilaterally and clear. No signs of acute distress. CARDIAC: Regular rate and rhythm. No murmurs, gallops, or rubs. EXTREMITIES: Gross motor and sensation intact in all extremities. 2+ pulses in all extremities. No significant swelling noted. LABORATORY FINDINGS: There are no laboratory findings to discuss. DIAGNOSTIC FINDINGS: Barium enema completed on May 28 demonstrated no evidence of leak or extravasation. Echocardiogram completed on the same day demonstrated normal sinus rhythm, normal EKG. No previous EKGs available. ASSESSMENT: 1. Status post colostomy reversal. 2. History of hypertension, diabetes and diverticulitis, status post sigmoidectomy with end colostomy. PLAN: The patient will go to the OR today with Dr. Newton. Postoperatively, she will be admitted to the surgical floor and have trickle feeds. 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 Will be started on home amlodipine. Will have insulin sliding scale. Will have Pepcid, Toradol, home lisinopril and metoprolol, Zofran for nausea and will have normal saline running at 120 an hour. She will work with [facility]. The patient was seen and discussed today with Dr. Newton. Job ID: [id number]
[2018-06-06] MEDS: Ketorolac Tromethamine 30 MG/ML VIAL IVP SCH ×5 (00:30→23:42)
[2018-06-06] MEDS: cefOXitin 2 GM in Sodium Chloride 0.9% 100 ML IVPB SCH ×4 (00:30→23:42)
[2018-06-06] MEDS: HumaLOG 300 UNITS/3 ML VIAL SC PRN ×3 (00:31→13:09)
[2018-06-06] MEDS: Sodium Chloride 0.9% 1,000 ML IV SCH ×3 (05:39→23:47)
[2018-06-06 06:19] LABS: #Lymphocytes 1.1 thou/uL (1.20-3.40); #Monocytes 1.1 thou/uL (0.11-0.59); %Basophils 0.1 % (0.0-1.0); %Eosinophils 0.1 % (0.0-10.0); %Lymphocytes 8.3 % (21.0-51.0); %Neutrophils 83.6 % (42.0-75.0); Hemoglobin 10.4 g/dL (12.0-16.0); Mean Corpuscular HGB CONC 32.9 g/dL (32.0-36.0); Mean Corpuscular Hemoglobin 32.3 pg (27.0-31.0); Mean Platelet Volume 9.9 fL (7.4-10.4); Platelet Count 196 thou/uL (130-400); RBC Distribution Width 11.8 % (11.5-14.5); Red Blood Cell (RBC) Count 3.22 mill/uL (4.20-5.40); White Blood Cell (WBC) Count 13.1 thou/uL (4.8-10.8)
[2018-06-06 06:37] LABS: Anion Gap 10 mmol/L (10-20); BUN (Urea Nitrogen) 14 mg/dL (7.0-18.7); Calc. Creatinine Clearance 74 mL/min (70-130); Calcium 8.3 mg/dL (7.8-10.44); Carbon Dioxide 23 mmol/L (22-29); Chloride 115 mmol/L (98-107); Estimated GFR-MDRD 57; Glucose 185 mg/dL (70-105); Magnesium 1.7 mg/dL (1.6-2.6); Potassium 3.9 mmol/L (3.5-5.1); Sodium 144 mmol/L (136-145)
[2018-06-06 06:40] LABS: Phosphorus 2.8 mg/dL (2.3-4.7)
[2018-06-06] MEDS ORDERED: Magnesium 2 GM/50 ML 2 GM in Premix Bag 1 BAG IVPB SCH (08:30)
[2018-06-06] MEDS ORDERED: Potassium Phosphate 15 MMOL in Sodium Chloride 0.9% 250 ML 250 ML IVPB SCH (08:30)
[2018-06-06] MEDS ORDERED: POTASSIUM PHOSPHATE IVPB SCH (09:00)
[2018-06-06] MEDS ORDERED: SODIUM CHLORIDE 0.9% IVPB SCH (09:00)
[2018-06-06] MEDS ORDERED: MAGNESIUM SULFATE IVPB SCH (09:00)
[2018-06-06] MEDS: Famotidine/PF 20 mg/2ml Vial SLOW IVP SCH ×2 (09:36→21:13)
[2018-06-06] MEDS: Metoprolol Tartrate 25 MG TAB PO SCH (09:36)
[2018-06-06] MEDS: Lisinopril 20 MG TAB PO SCH (09:36)
[2018-06-06] MEDS: Amlodipine 10 MG TAB PO SCH (09:36)
[2018-06-06 10:59] VITALS: BMI 31.3
--- NOTE | 2018-06-06 14:13 | PRG ---
DATE OF SERVICE: 06/06/2018 SUBJECTIVE: The patient was seen this morning lying in bed. She reported that her pain was well controlled and she was able to sleep well overnight. She only awoke when nursing came into the room to give her medications or check vital signs. She denies any bowel movement or flatus at this time. She has not ambulated yet since she was out of the OR. She has not yet been able to sit up in a chair, but was willing to try today. She denies nausea, vomiting, or diarrhea at this time. She is n.p.o. with trickle feeds and NG tube to low intermittent wall suction and she is tolerating that well. OBJECTIVE: VITAL SIGNS: Temperature 98.7, pulse 78, respirations 18, oxygen saturation 95% on room air, blood pressure 101/66. GENERAL: Well-appearing, middle-aged female, sitting up in bed with no signs of acute distress. PULMONARY: Equal chest rise and fall. Equal breath sounds bilaterally. CARDIAC: Regular rate and rhythm. No murmurs, gallops, or rubs. ABDOMEN: Soft, nontender, nondistended. Dressings in place that are clean, dry, and intact. No signs of acute infection. BLANCA drain to right lower quadrant with serosanguineous output in bulb. EXTREMITIES: Gross motor and sensation intact in all four extremities. 2+ pulses in all extremities. No significant swelling noted. LABORATORY FINDINGS: White count 13.1, hemoglobin 10.4, hematocrit 31.6, platelets 196. Sodium 143, potassium 3.4, chloride 115, carbon dioxide 23, BUN 14, creatinine 1.04, glucose 185, phosphorus 2.8, magnesium 1.7. DIAGNOSTIC FINDINGS: There are no diagnostic findings to report. ASSESSMENT: 1. Status post colostomy reversal. 2. History of hypertension. 3. Diabetes. 4. Diverticulitis, status post sigmoidectomy with end colostomy. PLAN: The patient will have her Lion discontinued. Will receive potassium, phosphorus, and magnesium replacements today. Physical Therapy will be ordered to get the patient up out of bed and into the chair. We will continue to hold off on a diet for now as the patient has not had flatus or bowel movement yet. We will continue BLANCA drain as well as normal saline at 125 an hour. The patient was discussed with Dr. Newton this morning after rounds. Job ID: [id number]
[2018-06-07] MEDS: HYDROmorphone 10 mg/100 ml CADD IVPB PRN (01:18)
[2018-06-07] MEDS: Ketorolac Tromethamine 30 MG/ML VIAL IVP SCH ×3 (05:57→17:26)
[2018-06-07] MEDS: HumaLOG 300 UNITS/3 ML VIAL SC PRN (06:13)
[2018-06-07 08:08] LABS: #Eosinphils 0.1 thou/uL (0.0-0.7); #Lymphocytes 1.5 thou/uL (1.20-3.40); #Monocytes 0.6 thou/uL (0.11-0.59); #Neutrophils 8.5 thou/uL (1.40-6.50); %Basophils 0.4 % (0.0-1.0); %Lymphocytes 13.9 % (21.0-51.0); %Monocytes 5.1 % (0.0-10.0); %Neutrophils 79.5 % (42.0-75.0); Hemoglobin 9.4 g/dL (12.0-16.0); Mean Corpuscular Hemoglobin 31.9 pg (27.0-31.0); Mean Corpuscular Volume 99.8 fL (78.0-98.0); Mean Platelet Volume 9.7 fL (7.4-10.4); Platelet Count 179 thou/uL (130-400); RBC Distribution Width 11.9 % (11.5-14.5); Red Blood Cell (RBC) Count 2.95 mill/uL (4.20-5.40); White Blood Cell (WBC) Count 10.7 thou/uL (4.8-10.8)
[2018-06-07 08:25] LABS: Anion Gap 9 mmol/L (10-20); BUN (Urea Nitrogen) 8 mg/dL (7.0-18.7); Calc. Creatinine Clearance 92 mL/min (70-130); Calcium 8.6 mg/dL (7.8-10.44); Carbon Dioxide 24 mmol/L (22-29); Chloride 115 mmol/L (98-107); Estimated GFR-MDRD 73; Glucose 132 mg/dL (70-105); Magnesium 2.1 mg/dL (1.6-2.6); Phosphorus 1.9 mg/dL (2.3-4.7); Potassium 4.3 mmol/L (3.5-5.1); Sodium 144 mmol/L (136-145)
[2018-06-07] MEDS ORDERED: Potassium Phosphate 30 MMOL in Sodium Chloride 0.9% 500 ML IVPB SCH (09:00)
[2018-06-07] MEDS: Lisinopril 20 MG TAB PO SCH (09:05)
[2018-06-07] MEDS: Metoprolol Tartrate 25 MG TAB PO SCH (09:06)
[2018-06-07] MEDS: Amlodipine 10 MG TAB PO SCH (09:06)
[2018-06-07] MEDS: Sodium Chloride 0.9% 1,000 ML IV SCH ×2 (09:08→16:55)
[2018-06-07] MEDS: cefOXitin 2 GM in Sodium Chloride 0.9% 100 ML IVPB SCH ×3 (09:08→23:52)
[2018-06-07] MEDS: Famotidine/PF 20 mg/2ml Vial SLOW IVP SCH ×2 (09:09→20:49)
--- NOTE | 2018-06-07 14:50 | PRG ---
DATE OF SERVICE: 06/07/2018 SUBJECTIVE: The patient was seen this morning lying in bed. Reported she slept well overnight and pain is well controlled. She reports she ambulated twice yesterday and once this morning as well as sat up in the chair yesterday and today. Denies flatus or bowel movement. Denies nausea, vomiting, or diarrhea. No significant abdominal pain out of proportion. Denies fevers or chills. She continues to tolerate her trickle tube feeds. OBJECTIVE: VITAL SIGNS: Temperature 98.4, pulse 90, respirations 16, O2 saturation 95% on room air, and blood pressure 127/82. GENERAL: Well-appearing middle-aged female, lying in bed with no signs of acute distress. PULMONARY: Equal chest rise and fall. Equal breath sounds bilaterally. No signs of acute pulmonary distress. CARDIAC: Regular rate and rhythm. No murmurs, gallops, or rubs. ABDOMEN: Soft, nontender, and nondistended. Dressing in place is clean, dry, and intact, which was removed. Midline incision without signs of infection. No drainage or purulence. No erythema noted. BLANCA to right lower quadrant with serosanguineous output in bulb. EXTREMITIES: Gross motor and sensation intact in all 4 extremities. 2+ pulses in all extremities. No significant swelling noted. LABORATORY FINDINGS: White count 10.7, hemoglobin 9.4, hematocrit 29.4, and platelets 179. Sodium 144, potassium 4.3, chloride 115, carbon dioxide 26, BUN 8, creatinine 0.84, glucose 132, phos 1.9, and magnesium 2.1. DIAGNOSTIC FINDINGS: There are no diagnostic findings to report. ASSESSMENT: 1. Status post colostomy reversal. 2. History of hypertension, diabetes, and diverticulitis, status post sigmoidectomy with end colostomy. 3. Hypophosphatemia. PLAN: We will replace phos IV today. The patient is being again encouraged to ambulate as much as possible and sit up in a chair. PT has been ordered to see the patient in order to assist with getting up out of bed and moving around. We will continue her to be n.p.o. 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 We are pending a flatus or bowel movement from the patient. She is voiding without difficulties after her Lion was removed. The patient was discussed with Dr. Newton this morning after rounds. Job ID: [id number]
[2018-06-08] MEDS: Sodium Chloride 0.9% 1,000 ML IV SCH ×2 (04:14→11:26)
[2018-06-08] MEDS: HYDROmorphone 10 mg/100 ml CADD IVPB PRN (05:48)
[2018-06-08] MEDS ORDERED: cefOXitin Sodium/Dextrose,Iso 2 GM in Premix Bag 1 BAG IVPB SCH (08:00)
[2018-06-08 08:34] LABS: #Eosinphils 0.3 thou/uL (0.0-0.7); #Lymphocytes 1.6 thou/uL (1.20-3.40); #Monocytes 0.4 thou/uL (0.11-0.59); #Neutrophils 6.2 thou/uL (1.40-6.50); %Basophils 0.2 % (0.0-1.0); %Lymphocytes 19.1 % (21.0-51.0); %Monocytes 4.8 % (0.0-10.0); %Neutrophils 71.9 % (42.0-75.0); Hemoglobin 9.6 g/dL (12.0-16.0); Mean Corpuscular HGB CONC 32.1 g/dL (32.0-36.0); Mean Corpuscular Hemoglobin 31.1 pg (27.0-31.0); Platelet Count 198 thou/uL (130-400); RBC Distribution Width 11.6 % (11.5-14.5); Red Blood Cell (RBC) Count 3.09 mill/uL (4.20-5.40); White Blood Cell (WBC) Count 8.6 thou/uL (4.8-10.8)
[2018-06-08] MEDS: Amlodipine 10 MG TAB PO SCH (08:49)
[2018-06-08] MEDS: Metoprolol Tartrate 25 MG TAB PO SCH (08:50)
[2018-06-08] MEDS: Lisinopril 20 MG TAB PO SCH (08:50)
[2018-06-08] MEDS: Famotidine/PF 20 mg/2ml Vial SLOW IVP SCH ×2 (08:50→20:10)
[2018-06-08 08:54] LABS: Anion Gap 11 mmol/L (10-20); BUN (Urea Nitrogen) 7 mg/dL (7.0-18.7); Calc. Creatinine Clearance 96 mL/min (70-130); Calcium 9.1 mg/dL (7.8-10.44); Carbon Dioxide 24 mmol/L (22-29); Chloride 112 mmol/L (98-107); Estimated GFR-MDRD 77; Glucose 131 mg/dL (70-105); Magnesium 1.9 mg/dL (1.6-2.6); Phosphorus 2.6 mg/dL (2.3-4.7); Potassium 4.9 mmol/L (3.5-5.1); Sodium 142 mmol/L (136-145)
[2018-06-08] MEDS: cefOXitin 2 GM in Sodium Chloride 0.9% 100 ML IVPB SCH (08:57)
[2018-06-08] MEDS: Enoxaparin Sodium 40 MG/0.4 ML SYRINGE SC SCH (10:11)
[2018-06-08] MEDS ORDERED: traMADol HCl 50 MG TAB PO PRN (11:02)
[2018-06-08] MEDS ORDERED: Acetaminophen 500 MG TAB PO SCH (11:15)
[2018-06-08] MEDS: Ibuprofen 800 MG TAB PO SCH ×2 (12:06→18:15)
[2018-06-08] MEDS: traMADol HCl 50 MG TAB PO PRN ×2 (12:06→18:15)
--- NOTE | 2018-06-08 12:11 | PRG ---
DATE OF SERVICE: 06/08/2018 SUBJECTIVE: Ms. Spencer is a 47-year-old woman, who is 3 days status post exploratory laparotomy, extensive adhesiolysis, and colostomy takedown. The patient reports passing flatus. She reports adequate pain control. Urinary output has been adequate. OBJECTIVE: VITAL SIGNS: This morning include blood pressure 148/90, pulse 71, respiratory rate is 16, temperature 98.7 degrees Fahrenheit, oxygen saturation 97% on room air. HEART: Reveals regular rate and rhythm. LUNGS: Clear to auscultation bilaterally. Breathing, regular and nonlabored. ABDOMEN: Soft, nondistended. Incision is intact with moderate incisional tenderness to palpation with no gross rebound tenderness present. All-Holley drain returns scant serous fluid. Nasogastric tube has returned 250 mL in the last 24 hours. NEUROLOGIC: Reveals no focal deficits present. LABORATORY FINDINGS: Today includes a CBC with 8600 white blood cells, hemoglobin and hematocrit stable at 9.6 and 29.9 respectively, platelet count stable at 198,000. Metabolic profile; sodium 142, potassium is 4.9, chloride is 112, bicarb 24, BUN 7, creatinine 0.80, glucose 131, magnesium 1.9, phosphorus 2.6. IMPRESSION: 1. Postop day #3, status post exploratory laparotomy, extensive adhesiolysis, and colostomy takedown. 2. Acute hypomagnesemia. 3. Acute hypophosphatemia. PLAN: 1. Correct abnormal electrolytes. 2. We will discontinue nasogastric tube and initiate clear liquid diet. 3. Increase activity as tolerated. 4. Above findings and plan discussed with the patient who indicates understanding of information given. 5. I have answered her questions. Job ID: [id number]
[2018-06-08] MEDS: Acetaminophen 500 MG TAB PO SCH (18:15)
[2018-06-09] MEDS: Acetaminophen 500 MG TAB PO SCH ×4 (00:22→17:36)
[2018-06-09] MEDS: traMADol HCl 50 MG TAB PO PRN ×4 (00:23→18:13)
[2018-06-09] MEDS: Ibuprofen 800 MG TAB PO SCH ×3 (03:52→18:13)
[2018-06-09 06:13] LABS: #Eosinphils 0.5 thou/uL (0.0-0.7); #Lymphocytes 1.6 thou/uL (1.20-3.40); #Monocytes 0.5 thou/uL (0.11-0.59); #Neutrophils 4.4 thou/uL (1.40-6.50); %Basophils 0.5 % (0.0-1.0); %Eosinophils 7.1 % (0.0-10.0); %Lymphocytes 22.7 % (21.0-51.0); %Neutrophils 62.7 % (42.0-75.0); Hemoglobin 9.7 g/dL (12.0-16.0); Mean Corpuscular HGB CONC 33.2 g/dL (32.0-36.0); Mean Corpuscular Hemoglobin 32.2 pg (27.0-31.0); Mean Corpuscular Volume 96.8 fL (78.0-98.0); Mean Platelet Volume 9.1 fL (7.4-10.4); Platelet Count 223 thou/uL (130-400); RBC Distribution Width 11.5 % (11.5-14.5); Red Blood Cell (RBC) Count 3.03 mill/uL (4.20-5.40); White Blood Cell (WBC) Count 6.9 thou/uL (4.8-10.8)
[2018-06-09 07:56] LABS: Anion Gap 11 mmol/L (10-20); BUN (Urea Nitrogen) 9 mg/dL (7.0-18.7); Calc. Creatinine Clearance 99 mL/min (70-130); Calcium 9.2 mg/dL (7.8-10.44); Carbon Dioxide 25 mmol/L (22-29); Chloride 104 mmol/L (98-107); Estimated GFR-MDRD 79; Glucose 151 mg/dL (70-105); Magnesium 1.5 mg/dL (1.6-2.6); Phosphorus 3.2 mg/dL (2.3-4.7); Sodium 136 mmol/L (136-145)
[2018-06-09] MEDS: Enoxaparin Sodium 40 MG/0.4 ML SYRINGE SC SCH (08:11)
[2018-06-09] MEDS: Amlodipine 10 MG TAB PO SCH (08:12)
[2018-06-09] MEDS: Famotidine/PF 20 mg/2ml Vial SLOW IVP SCH ×2 (08:12→20:43)
[2018-06-09] MEDS: Metoprolol Tartrate 25 MG TAB PO SCH (08:12)
[2018-06-09] MEDS: Lisinopril 20 MG TAB PO SCH (08:12)
[2018-06-09] MEDS ORDERED: Lisinopril 20 MG TAB PO SCH (09:00)
[2018-06-09] MEDS ORDERED: Lisinopril 10 MG TAB PO SCH (09:00)
[2018-06-09] MEDS: HumuLIN 70/30 (300 UNITS/3 ML VIAL) SC SCH (09:41)
[2018-06-09] MEDS ORDERED: Ondansetron ODT 4 MG TAB PO PRN (11:13)
[2018-06-09] MEDS ORDERED: Ondansetron PF 4 MG/2 ML Vial IVP PRN (11:13)
--- NOTE | 2018-06-09 11:43 | PRG ---
DATE OF SERVICE: 06/09/2018 SUBJECTIVE: Ms. Spencer is a 47-year-old woman who is postop day #4 today status post exploratory laparotomy, extensive lysis of adhesions, and colostomy reversal. She reports adequate pain control today. She is tolerating a full liquid diet. She is having normal bowel and urinary function. Her pain this morning is reported at 5/10. OBJECTIVE: VITAL SIGNS: Include blood pressure 138/90, pulse is 88, respiratory rate is 16, temperature 98.1 degrees Fahrenheit, oxygen saturation 96% on room air. HEART: Reveals regular rate and rhythm. LUNGS: Clear to auscultation bilaterally. Her breathing regular and nonlabored. ABDOMEN: Soft and nondistended. Incision remains intact, clean and dry. All-Holley drain returned scant amount of serous fluid in last 24 hours. LABORATORY FINDINGS: Includes a CBC with 6900 white blood cells, hemoglobin and hematocrit 9.7 and 29.3 respectively. Platelet count is 223,000. Metabolic profile; sodium 136, potassium is 4.0, chloride is 104, bicarb is 25, BUN is 9, creatinine is 0.78, glucose is 151, magnesium 1.5, phosphorus is 3.2. IMPRESSIONS: 1. Postoperative day #4 status post exploratory laparotomy, extensive lysis of adhesions, and colostomy reversal. 2. Acute hypomagnesemia. PLAN: 1. Correct abnormal electrolytes. 2. We will discontinue feeding tube and tube feeds as well as All-Holley drain. 3. We will advance the patient's diet to regular. 4. The patient will likely be discharged home by tomorrow, if tolerating a general diet. Job ID: [id number]
[2018-06-09] MEDS: metFORMIN 500 MG TAB PO SCH (17:36)
[2018-06-10] MEDS: Acetaminophen 500 MG TAB PO SCH ×3 (00:43→12:11)
[2018-06-10] MEDS: traMADol HCl 50 MG TAB PO PRN ×2 (00:43→06:00)
[2018-06-10] MEDS: Ibuprofen 800 MG TAB PO SCH ×2 (03:23→12:11)
[2018-06-10] MEDS: Famotidine/PF 20 mg/2ml Vial SLOW IVP SCH (08:29)
[2018-06-10] MEDS: Amlodipine 10 MG TAB PO SCH (08:29)
[2018-06-10] MEDS: metFORMIN 500 MG TAB PO SCH (08:29)
[2018-06-10] MEDS: HumuLIN 70/30 (300 UNITS/3 ML VIAL) SC SCH (08:29)
[2018-06-10] MEDS: Enoxaparin Sodium 40 MG/0.4 ML SYRINGE SC SCH (08:30)
[2018-06-10] MEDS: Lisinopril 20 MG TAB PO SCH (08:30)
[2018-06-10] MEDS: Metoprolol Tartrate 25 MG TAB PO SCH (08:30)
[2018-06-10 12:18] VITALS: BP 139/86; TEMP 98.2
--- NOTE | 2018-06-11 11:45 | DIS ---
DATE OF ADMISSION: 06/05/2018 DATE OF DISCHARGE: 06/10/2018 ADMISSION DIAGNOSIS: Status post Frankie procedure for acute diverticulitis with perforation and abscess, awaiting colostomy reversal. CONSULTATIONS: None. PROCEDURES: 1. Exploratory laparotomy. 2. Extensive adhesiolysis. 3. Colostomy takedown with colorectal anastomosis. 4. Placement of feeding nasojejunal tube. SUMMARY: The patient is a 47-year-old female who had undergone her Frankie's procedure due to perforated colon approximately 6 months ago. The patient returned as a planned event to undergo colostomy reversal. She will be admitted to the hospital to undergo the above procedures. She would have a feeding tube for 2 days and then was able to be weaned off it and started on clear liquids and eventually advanced to regular diet. The patient's bowel function had returned and at time of discharge, the patient's pain was controlled. She was tolerating a diet. She was ambulatory without assistance and was able to be discharged home. She will follow up with Dr. Newton in 7 to 10 days or sooner as needed. The patient was given strict return precautions at time of discharge. Job ID: [id number]
== END 2018-06-10 13:00 | disposition home or self-care (01) | DRG 337 ==
LOC: SURG A 06-05 06:08 → EEVIPCON 06-05 11:15 → SURG A 06-05 15:57
PROVIDERS: ADMIT Surgery; ATTEND Surgery
PROC: 0DNW0ZZ Release Peritoneum, Open Approach (ICD-10-PCS; principal; 2018-06-05)
PROC: 0DSM0ZZ Reposition Descending Colon, Open Approach (ICD-10-PCS; 2018-06-05)
PROC: 3E0T3BZ Introduction of Anesthetic Agent into Peripheral Nerves and Plexi, Percutaneous Approach (ICD-10-PCS; 2018-06-05)
PROC: 0DHA7UZ Insertion of Feeding Device into Jejunum, Via Natural or Artificial Opening (ICD-10-PCS; 2018-06-05)
DX: Z43.3 Encounter for attention to colostomy (principal); K66.0 Peritoneal adhesions (postprocedural) (postinfection); E83.42 Hypomagnesemia; E83.39 Other disorders of phosphorus metabolism; I10 Essential (primary) hypertension; E11.9 Type 2 diabetes mellitus without complications; Z90.49 Acquired absence of other specified parts of digestive tract; Z79.899 Other long term (current) drug therapy; Z79.4 Long term (current) use of insulin
CPT/HCPCS: 36415; 36416; 80048; 83735; 84100; 85025; J0131; J0360; J0670; J0694; J1100; J1650; J1815; J1885; J2001; J2250; J2405; J2550; J2704; J3010; J3475; J3490; J7050; P9045; Q0162; S0028